=== PATIENT | female | born 2000 | race Caucasian/White ===

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

== ENCOUNTER → 2020-01-16 12:19 | Outpatient (CLI) | payer OTHER, SELFPAY ==
[2020-01-16 13:05] LABS: Basophils # 0.1 K/mm3 (0-0.2); Basophils % 0.8 % (0.1-2.0); Eosinophils # 0.1 K/mm3 (0.0-0.4); Lymphocytes # 2.7 K/mm3 (0.7-4.5); Neutrophils # 4.3 K/mm3 (1.8-7.8)
[2020-01-16 13:18] LABS: Eosinophils % 1.4 % (0.1-12.0); Hematocrit 39.1 % (37.0-47.0); Hemoglobin 12.8 g/dL (12.2-16.2); Mean Corpuscular HGB Conc 32.7 g/dL (31.8-35.4); Mean Corpuscular Hemoglobin 24.5 pg (27.0-31.2); Mean Corpuscular Volume 74.9 fl (81-99); Mean Platelet Volume 7.5 fl (7.4-10.4); Monocytes # 0.4 K/mm3 (0.1-1.0); Monocytes % 4.6 % (1.7-9.3); Neutrophils % 57.1 % (37.0-80.0); Platelet Count 513 K/mm3 (142-424); Red Blood Count 5.22 M/mm3 (4.20-5.40); Red Cell Distribution Width 16.1 % (11.5-17.5); White Blood Count 7.6 K/mm3 (4.5-13.0)
[2020-01-16 13:35] LABS: Alanine Aminotransferase 20 U/L (12-78); Albumin Level 4.2 g/dl (3.5-5.0); Albumin/Globulin Ratio 1.4 (1.1-1.8); Alkaline Phosphatase 107 U/L (38-126); Anion Gap 15.5 mEq/L (5-15); Aspartate Amino Transferase 28 U/L (14-36); Bilirubin,Total 0.4 mg/dl (0.2-1.3); Blood Urea Nitrogen 13 mg/dl (7-17); Calcium 9.6 mg/dl (8.4-10.2); Carbon Dioxide 24 mmol/L (22.0-30.0); Chloride 102 mmol/L (98-107); Chol/HDL Ratio 6.7 (1-3.5); Cholesterol 220 mg/dl (140-200); Estimated Glomerular Filt Rate 108 ml/min (>60); GFR (African American) 130 ML/MIN (>60); Glucose 96 mg/dl (74-100); HDL Cholesterol 33 mg/dl (40-60); Potassium 4.5 mmoL/L (3.5-5.1); Sodium 137 mmol/L (136-145); Total Protein,Serum 7.2 g/dl (6.3-8.2); Triglycerides 220 mg/dl (30-150); VLDL Cholesterol 44 mg/dL (0-40)
[2020-01-16 13:50] LABS: 25-OH Vitamin D, Total 33.4 ng/mL (30-100)
[2020-01-16 13:51] LABS: T4 (Thyroxine) 8.6 ug/dl (5.53-11.0)
[2020-01-16 14:05] LABS: Thyroid Stimulating Hormone 2.63 uIU/mL (0.465-4.68)
== END ==
PROVIDERS: Visit Provider Nurse Practitioner Family
DX: Z76.89 Persons encountering health services in other specified circumstances (principal); E66.01 Morbid (severe) obesity due to excess calories; R03.0 Elevated blood-pressure reading, without diagnosis of hypertension; Z68.41 Body mass index [BMI] 40.0-44.9, adult; Z13.220 Encounter for screening for lipoid disorders
CPT/HCPCS: 36415; 80053; 80061; 82306; 84436; 84443; 85025

== ENCOUNTER → 2020-02-03 08:42 | Outpatient (CLI) | payer OTHER, SELFPAY ==
[2020-02-03 09:18] LABS: Basophils # 0.1 K/mm3 (0-0.2); Basophils % 0.9 % (0.1-2.0); Eosinophils # 0.1 K/mm3 (0.0-0.4); Eosinophils % 1.8 % (0.1-12.0); Hematocrit 38.5 % (37.0-47.0); Hemoglobin 12.4 g/dL (12.2-16.2); Lymphocytes # 2.4 K/mm3 (0.7-4.5); Lymphocytes % 40.8 % (10-50); Mean Corpuscular HGB Conc 32.3 g/dL (31.8-35.4); Mean Corpuscular Hemoglobin 24.7 pg (27.0-31.2); Mean Corpuscular Volume 76.3 fl (81-99); Mean Platelet Volume 7.6 fl (7.4-10.4); Monocytes # 0.3 K/mm3 (0.1-1.0); Monocytes % 4.7 % (1.7-9.3); Neutrophils # 3.1 K/mm3 (1.8-7.8); Neutrophils % 51.7 % (37.0-80.0); Platelet Count 454 K/mm3 (142-424); Red Blood Count 5.04 M/mm3 (4.20-5.40); Red Cell Distribution Width 15.5 % (11.5-17.5)
[2020-02-05 08:46] LABS: Peripheral Smear Review Scanned Result
== END ==
PROVIDERS: Visit Provider Physician Assistant
DX: D72.829 Elevated white blood cell count, unspecified (principal)
CPT/HCPCS: 36415; 85025

== ENCOUNTER → 2020-02-10 08:48 | Outpatient (CLI) | payer OTHER, SELFPAY ==
[2020-02-10 09:36] LABS: Iron 42 ug/dL (37-170)
[2020-02-10 09:44] LABS: Total Iron Binding Capacity 372 ug/dL (265-497)
[2020-02-10 10:09] LABS: Ferritin 12.5 ng/ml (6.24-137)
== END ==
PROVIDERS: Visit Provider Physician Assistant
DX: R71.8 Other abnormality of red blood cells (principal)
CPT/HCPCS: 36415; 82728; 83540; 83550

== ENCOUNTER 2020-03-31 19:35 | Emergency (ER) | payer OTHER, SELFPAY ==
[2020-03-31 19:54] VITALS: BP 149/90; PULSE 81; RESP 18; O2SAT 99; BMI 39.9
--- NOTE | 2020-03-31 20:18 | HMH.EDUTC ---
[facility] [place]ression: Otitis media Qualifiers: Otitis media type: unspecified Laterality: left Qualified Code(s): H66.92 - Otitis media, unspecified, left ear Disposition: Home, Self-Care Condition on Discharge: Good Instructions: Middle Ear Infections (Alternative Therapy), Middle Ear Infection, Amoxicillin and Clavulanic Acid Additional Instructions: Take medication as prescribed FOllow up with ENT as scheduled FOllow up with Family Doctor if no improvement or any worsening of symptoms Straight to ER if any life threatening symptoms Prescriptions: Amoxicillin/Potassium Clav [Augmentin 875-125 Tablet] 1 tab PO Q12H 10 Days #20 tab Transmission Status: Received by [id number] Referrals: Jose Roberto Castillo MD [Primary Care Provider] - Time of Disposition: 20:24 Medical Decision Making - Elias Inquiry Pt receiving controlled substance: No Elias was queried for this patient: No Vital Signs: 03/31/20 19:54 03/31/20 20:40 Temperature 98.1 F Temperature Source Oral Pulse Rate 81 Pulse Rate [Radial] 81 Respiratory Rate 18 18 Blood Pressure 149/90 H Blood Pressure [Right Arm] 149/90 H Blood Pressure Mean [Right Arm] 109 Blood Pressure Source Automatic Cuff Blood Pressure Source [Right Arm] Automatic Cuff Blood Pressure Position Sitting Blood Pressure Position [Right Arm] Sitting 02 Sat by Pulse Oximetry 99 Oxygen Delivery Method Room Air Room Air Orders (Tests/Meds): ED MEDICATIONS Discontinued Medications Generic Name Dose Route Start Last Admin Trade Name Freq PRN Reason Stop Dose Admin Amoxicillin/Clavulanate Potassium 1 each 03/31/20 20:24 03/31/20 20:29 Amoxicillin/Pot Clavulan 500mg Tablet PO 03/31/20 20:25 1 each ONCE ONE Administration Protocol [facility] [place] - General Stated complaint: Possible L ear infection Time Seen by Provider: 03/31/20 20:18 Mode of Arrival: Ambulatory Source of Information: Patient Limitations: No Limitations Description of Symptoms (Recalled from Triage Doc. by RN): POSSIBLE EAR INFECTION HEENT Symptoms (Recalled from RN notes): Yes Resp Symptoms (Recalled from RN notes): No Skin Symptoms (Recalled from RN notes): No MS Symptoms (Recalled from RN notes): No Functional Status (Recalled from RN notes): WNL - History of Present Illness Provider Complaint: Patient states that she has a ear drum rupture back in May and ever since she has ear infections in her left ear States that she felt it start coming on several days ago and she has been watching it States that she feels like she is having pressure and pain in left ear again like she had before with infection - Related Data Previous Rx's Medication Instructions Recorded Amoxicillin/Potassium Clav 1 tab PO Q12H 10 Days #20 tab 03/31/20 [Augmentin 875-125 Tablet] Allergies Allergy/AdvReac Type Severity Reaction Status Date / Time No Known Allergies Allergy Verified 02/23/20 12:48 - Worker's Comp Is this a Worker's Comp case?: No [facility] History - Hepatitis A Screen Drug use history?: No High risk sexual behaviors?: No History of sexually transmitted infection?: No Currently employed?: No Childcare worker?: No Do you have indoor plumbing?: Yes Do you have electricity?: Yes Attestation statement:: This patient has been screened for Hepatitis A risk factors. I have reviewed the patient's past medical history: Yes Other Medical History: Reports: Sinus Problems Laterality Cases: Bilateral: Tonsillectomy Other Surgeries: Yes: Other Comment: wisdom teeth - Social History Smoking Status: Never smoker Alcohol Intake: never Substance Use Type: denies use Occupational Status: employed Family Hx:: Diabetes, Coronary Artery Disease, Stroke, Heart Attack ROS Obtained: Yes All systems reviewed & no additional complaints, Yes Systems reviewed as appropriate & no additional complaints - Constitutional Constitutional: Reports system rev
[2020-03-31 20:40] VITALS: BP 149/90; PULSE 81; RESP 18; TEMP 36.7; O2SAT 99
== END 2020-03-31 20:41 | disposition home or self-care (01) ==
PROVIDERS: Emergency Provider Nurse Practitioner; PCP Emergency Medicine
DX: H66.92 Otitis media, unspecified, left ear (principal)
CPT/HCPCS: 99201

== ENCOUNTER → 2020-04-30 11:57 | Outpatient (CLI) | payer OTHER, SELFPAY ==
[2020-04-30 13:44] LABS: Basophils # 0.1 K/mm3 (0-0.2); Eosinophils # 0.1 K/mm3 (0.0-0.4); Eosinophils % 1.4 % (0.1-12.0); Hematocrit 42.4 % (37.0-47.0); Hemoglobin 13.6 g/dL (12.2-16.2); Lymphocytes % 39.9 % (10-50); Mean Corpuscular Hemoglobin 25.6 pg (27.0-31.2); Mean Corpuscular Volume 79.9 fl (81-99); Monocytes # 0.4 K/mm3 (0.1-1.0); Monocytes % 5.2 % (1.7-9.3); Neutrophils # 3.9 K/mm3 (1.8-7.8); Neutrophils % 52.6 % (37.0-80.0); Platelet Count 497 K/mm3 (142-424); Red Cell Distribution Width 15.3 % (11.5-17.5); White Blood Count 7.4 K/mm3 (4.5-13.0)
[2020-04-30 15:04] LABS: Chloride 104 mmol/L (98-107); Potassium 4.7 mmoL/L (3.5-5.1); Sodium 137 mmol/L (136-145)
[2020-04-30 15:06] LABS: Blood Urea Nitrogen 10 mg/dl (7-17); Estimated Glomerular Filt Rate 108 ml/min (>60); GFR (African American) 130 ML/MIN (>60)
[2020-04-30 15:07] LABS: Alanine Aminotransferase 15 U/L (12-78); Albumin Level 4.1 g/dl (3.5-5.0); Albumin/Globulin Ratio 1.4 (1.1-1.8); Alkaline Phosphatase 88 U/L (38-126); Anion Gap 13.7 mEq/L (5-15); Aspartate Amino Transferase 24 U/L (14-36); Bilirubin,Total 0.3 mg/dl (0.2-1.3); Calcium 9.2 mg/dl (8.4-10.2); Carbon Dioxide 24 mmol/L (22.0-30.0); Globulin 2.9 g/dL (1.3-3.2); Glucose 90 mg/dl (74-100); Iron 50 ug/dL (37-170)
[2020-04-30 15:20] LABS: Total Iron Binding Capacity 354 ug/dL (265-497)
[2020-04-30 15:41] LABS: Ferritin 11.1 ng/ml (6.24-137)
== END ==
PROVIDERS: Visit Provider Internal Medicine Medical Oncology
DX: R71.8 Other abnormality of red blood cells (principal)
CPT/HCPCS: 36415; 80053; 82728; 83540; 83550; 85025

== ENCOUNTER → 2020-09-19 16:17 | Outpatient (CLI) | payer OTHER, SELFPAY ==
[2020-09-19 17:23] LABS: Basophils # 0.1 K/mm3 (0-0.2); Basophils % 0.6 % (0.1-2.0); Eosinophils # 0.1 K/mm3 (0.0-0.4); Eosinophils % 0.8 % (0.1-12.0); Hematocrit 38.7 % (37.0-47.0); Hemoglobin 12.8 g/dL (12.2-16.2); Lymphocytes # 2.6 K/mm3 (0.7-4.5); Lymphocytes % 25.1 % (10-50); Mean Corpuscular Hemoglobin 26.9 pg (27.0-31.2); Mean Corpuscular Volume 81.6 fl (81-99); Mean Platelet Volume 7.9 fl (7.4-10.4); Monocytes # 0.6 K/mm3 (0.1-1.0); Monocytes % 5.4 % (1.7-9.3); Neutrophils # 7.1 K/mm3 (1.8-7.8); Neutrophils % 68.1 % (37.0-80.0); Platelet Count 438 K/mm3 (142-424); Red Blood Count 4.75 M/mm3 (4.20-5.40); Red Cell Distribution Width 14.1 % (11.5-17.5); White Blood Count 10.5 K/mm3 (4.5-13.0)
[2020-09-21 10:50] LABS: HSV 2 IgG, Type Spec <0.91 index (0.00-0.90); Rubella Antibodies, IgG 2.17 index (Immune >0.99)
[2020-09-21 10:56] LABS: HIV Screen 4th Generation wRfx Non Reactive (Non Reactive)
[2020-09-21 11:10] LABS: Hepatitis B Surface Antigen Negative (Negative); Hepatitis C Antibody <0.1 s/co ratio (0.0-0.9)
[2020-09-21 14:08] LABS: Rapid Plasma Reagin Ab Titer Non Reactive (NonRea<1:1)
[2020-09-24 20:28] LABS: Neisseria gonorrhoeae, NAA Negative (Negative)
== END ==
PROVIDERS: Visit Provider Nurse Practitioner Obstetrics & Gynecology
DX: Z34.90 Encounter for supervision of normal pregnancy, unspecified, unspecified trimester (principal)
CPT/HCPCS: 36415; 85025; 86592; 86695; 86703; 86762; 86790; 86850; 87340; 87380; 87491; 87591; G0432

== ENCOUNTER → 2020-09-26 14:10 | Outpatient (CLI) | payer OTHER, SELFPAY ==
--- NOTE | 2020-09-26 14:11 | US_ITS ---
PROCEDURE: US OB <= 14 WEEKS FETUS CLINICAL INDICATION: for dates COMPARISON: No exams were available for comparison FINDINGS: An intrauterine gestational sac is present with a pole with a crown-rump length of 1.94cm correlating to gestational age of 8weeks 4days. heart tones are present with an FHR of 160bpm. Yolk sac is noted. IMPRESSION: Single live intrauterine gestation with gestational age of 8 weeks and 4 days. Estimated due date by Ultrasound is 05/04/2021 Dictated by: Frieda Jaffe 09/27/2020 09:36 Frieda Jaffe in [place] 09/27/2020 09:36
== END ==
PROVIDERS: PCP Emergency Medicine; Visit Provider Nurse Practitioner Obstetrics & Gynecology
DX: Z34.90 Encounter for supervision of normal pregnancy, unspecified, unspecified trimester (principal)
CPT/HCPCS: 76801

== ENCOUNTER 2020-12-08 14:01 | Emergency (ER) | payer OTHER, SELFPAY ==
[2020-12-08 14:12] VITALS: BP 138/77; PULSE 104; RESP 18; TEMP 36.6; O2SAT 100; BMI 43.2
--- NOTE | 2020-12-08 14:38 | HMH.EDUTC ---
[facility] [place] Clinical Impression: Acute maxillary sinusitis Qualifiers: Recurrence: non-recurrent Qualified Code(s): J01.00 - Acute maxillary sinusitis, unspecified Disposition: Home, Self-Care Condition on Discharge: Good Instructions: DI for Sinusitis Additional Instructions: Start antibiotic patient to take as ordered for a full length of time even if you feel better. Sinus infections do not get better overnight. It may take 2-3 days to notice much improvement so be sure to use conservative measures as discussed for symptoms. Increase fluids Humidifier/vaporizer as needed Tylenol as needed for fever or pain. If symptoms do not improve or get worse return or be seen in the ER Follow-up with primary care this week Prescriptions: cephALEXin [Cephalexin 500mg Tab] 500 mg PO BID 7 Days #14 tab Transmission Status: Pending to [id number] Referrals: Jose Roberto Castillo MD [Primary Care Provider] - Time of Disposition: 14:41 Medical Decision Making - Elias Inquiry Pt receiving controlled substance: No Vital Signs: 12/08/20 14:12 Temperature 97.9 F Temperature Source Tympanic Pulse Rate [Apical] 104 H Respiratory Rate 18 Blood Pressure [Right Arm] 138/77 Blood Pressure Mean [Right Arm] 97 Blood Pressure Source [Right Arm] Automatic Cuff Blood Pressure Position [Right Arm] Sitting 02 Sat by Pulse Oximetry 100 Oxygen Delivery Method Room Air [facility] [place] - General Chief complaint: Urgent [facility] Stated complaint: 19 wks, both ear pain, sinuses Time Seen by Provider: 12/08/20 14:38 Mode of Arrival: Ambulatory Source of Information: Patient Limitations: No Limitations Description of Symptoms (Recalled from Triage Doc. by RN): ear and sinus issues HEENT Symptoms (Recalled from RN notes): No Resp Symptoms (Recalled from RN notes): No Skin Symptoms (Recalled from RN notes): No MS Symptoms (Recalled from RN notes): No Functional Status (Recalled from RN notes): na - History of Present Illness Provider Complaint: 20 yr old female presents for missy ear pressure,sinus pressure,sinus pain, and dark yellow drainage. - Related Data Home Medications Medication Instructions Recorded Confirmed prenat.vits,briana,[id number] 1 tab PO DAILY 08/31/20 11/14/20 polyethylene glycol 3350 17 17 g PO g 11/14/20 11/14/20 gram/dose oral powder Previous Rx's Medication Instructions Recorded polyethylene glycol 3350 17 gram 17 g PO DAILY 100 Days #100 each 10/17/20 oral powder packet cephALEXin [Cephalexin 500mg Tab] 500 mg PO BID 7 Days #14 tab 12/08/20 Allergies Allergy/AdvReac Type Severity Reaction Status Date / Time No Known Allergies Allergy Verified 11/14/20 13:49 - Worker's Comp Is this a Worker's Comp case?: No [facility] History - Hepatitis A Screen Drug use history?: No High risk sexual behaviors?: No History of sexually transmitted infection?: No Currently employed?: No Childcare worker?: No Do you have indoor plumbing?: Yes Do you have electricity?: Yes Attestation statement:: This patient has been screened for Hepatitis A risk factors. I have reviewed the patient's past medical history: Yes Medical History: Reports:: Hypertension Other Medical History: Reports: Sinus Problems Laterality Cases: Bilateral: Tonsillectomy Other Surgeries: Yes: No Previous Surgery, Other Amputation: No Fractures: No Comment: wisdom teeth - Social History Smoking Status: Never smoker Alcohol Intake: never Substance Use Type: denies use Occupational Status: employed Family Hx:: Diabetes, Coronary Artery Disease, Stroke, Heart Attack ROS Obtained: Yes Systems reviewed as appropriate & no additional complaints - Constitutional Constitutional: Reports system reviewed and no additional complaints, except as docu, Denies lethargy - Eyes Eyes: Reports system reviewed and no additional complaints, except as docu, Denies dry eyes - ENT Ears, Nose, Mouth, and Throat: Reports
[2020-12-08 14:59] VITALS: BP 138/77; PULSE 104; RESP 18; TEMP 36.6; O2SAT 100
== END 2020-12-08 14:40 | disposition home or self-care (01) ==
PROVIDERS: Emergency Provider Nurse Practitioner Family; PCP Emergency Medicine
DX: J01.00 Acute maxillary sinusitis, unspecified (principal); Z3A.19 19 weeks gestation of pregnancy
CPT/HCPCS: 99202; G0463

== ENCOUNTER → 2020-12-19 12:56 | Outpatient (CLI) | payer OTHER, SELFPAY ==
--- NOTE | 2020-12-19 12:56 | US_ITS ---
PROCEDURE: US OB >= 14 WEEKS FETUS CLINICAL INDICATION: 20 weeks gestation COMPARISON: US US OB <= 14 WEEKS FETUS from 09/26/2020 FINDINGS: There is less than optimal imaging due to maternal obesity. Single live fetus is present in breech presentation. heart body motion noted. Cervix is closed and measures 4 cm. The placenta is posterior and grade 1. All parameters correlate. Complete survey performed and was unremarkable on the submitted images as in PACS. No discrete anomalies identified on survey imaging by technologist. Active fetus. Three-vessel cord with satisfactory umbilical cord insertion. 4- chamber heart noted. Survey of brain & ventricles Unremarkable. Face and neck survey unremarkable. Diaphragm and chest views unremarkable. Abdomen: Both kidneys noted and unremarkable. Stomach noted and satisfactory. Spine: Survey of the spine satisfactory with no anomalies identified nor imaged. Both arms and legs noted. Amniotic Fluid: Adequate. Maternal adnexa: No significant findings. Measurements: Average ultrasound age 20weeks 4days. Gestational Age 20weeks 4days Estimated due date by ultrasound age 1205/04/2021. Estimated weight 355g BPD = 20weeks 5days OFD = 20weeks 4days HC = 19weeks 6days AC = 20weeks 5days FL = 20weeks 4days Growth Percentile= 39Percent% Heart Rate = Cerebellum = 20weeks 3days Humerus = 21weeks 3days HC/AC is 1.11 CI is 0.8 FL/BPD is 0.69 FL/AC is 0.22 IMPRESSION: Live IUP in breech presentation with an average ultrasound age of 20 weeks 4 days and no obvious anomalies. Please see above for detail. Dictated by: Humberto Victoria MD 12/20/2020 09:01 Humberto Victoria MD in OV 12/20/2020 09:01
== END ==
PROVIDERS: PCP Emergency Medicine; Visit Provider Nurse Practitioner Obstetrics & Gynecology
DX: Z34.91 Encounter for supervision of normal pregnancy, unspecified, first trimester (principal); Z3A.20 20 weeks gestation of pregnancy
CPT/HCPCS: 76805

== ENCOUNTER → 2021-01-28 10:50 | Outpatient (CLI) | payer OTHER, SELFPAY ==
[2021-01-28 11:38] LABS: Glucose,Fasting 103 mg/dl (74-100)
[2021-01-28 13:59] LABS: Glucose 1 Hour 137 mg/dL (74-100)
== END ==
PROVIDERS: Visit Provider Nurse Practitioner Obstetrics & Gynecology
DX: Z34.90 Encounter for supervision of normal pregnancy, unspecified, unspecified trimester (principal)
CPT/HCPCS: 36415; 82951

== ENCOUNTER → 2021-02-01 09:58 | Outpatient (CLI) | payer OTHER, SELFPAY ==
[2021-02-01 11:01] LABS: Glucose,Fasting 99 mg/dl (74-100)
[2021-02-01 13:03] LABS: Glucose 2 Hour 104 mg/dL (74-100)
[2021-02-01 14:30] LABS: Glucose 3 Hour 83 mg/dL (74-100)
== END ==
PROVIDERS: Visit Provider Nurse Practitioner Obstetrics & Gynecology
DX: Z34.90 Encounter for supervision of normal pregnancy, unspecified, unspecified trimester (principal)
CPT/HCPCS: 36415; 82951

== ENCOUNTER → 2021-04-04 14:46 | Outpatient (CLI) | payer OTHER, SELFPAY ==
--- NOTE | 2021-04-04 14:47 | US_ITS ---
PROCEDURE: US OB BIOPHYSICAL PROFILE CLINICAL INDICATION: LGA TECHNIQUE: FINDINGS: The following parameters are obtained: There is a single live fetus in cephalic presentation. The cervix is closed measuring 3 cm. The placenta is fundal and grade 1. Average ultrasound age is Average 36weeks Estimated due date by ultrasound is 05/02/2021. Estimated weight is 2,691g. This is 34 percentile BPD: 38weeks OFD: 38weeks HC: 36 weeks 1 day AC: 34 weeks 6 days FL: 36 weeks 3 days heart rate: 149bpm bpm. HC/AC: 1.04 Cephalic index: 0.79 FL/BPD: 0.79 FL/AC: 0.23 Amniotic fluid index: 14.59cm Qualitative AFV: 2 breathing movements: 2 Gross body movements: 2 Tone: 2 Biophysical profile score: 8 IMPRESSION: Live IUP in cephalic presentation with an average ultrasound age of 36 weeks and an estimated weight of 2691 g which is 34 percentile. Please see above for detailed description. Normal MARK of 15 cm Biophysical profile 8 of 8 Dictated by: Humberto Victoria MD 04/04/2021 17:25 Humberto Victoria MD in OV 04/04/2021 17:25
== END ==
PROVIDERS: PCP Emergency Medicine; Visit Provider Nurse Practitioner Obstetrics & Gynecology
DX: O36.60X0 Maternal care for excessive fetal growth, unspecified trimester, not applicable or unspecified (principal)
CPT/HCPCS: 76816; 76819

== ENCOUNTER → 2021-04-08 14:35 | Outpatient (CLI) | payer OTHER, SELFPAY | PROVIDERS: Visit Provider Nurse Practitioner Obstetrics & Gynecology | DX: Z34.90 Encounter for supervision of normal pregnancy, unspecified, unspecified trimester (principal); Z3A.36 36 weeks gestation of pregnancy | CPT/HCPCS: 86403 ==

== ENCOUNTER → 2021-04-16 11:37 | Outpatient (CLI) | payer OTHER, SELFPAY ==
[2021-04-16 12:05] LABS: Basophils # 0.1 K/mm3 (0-0.2); Basophils % 0.5 % (0.1-2.0); Eosinophils # 0.1 K/mm3 (0.0-0.4); Eosinophils % 1.3 % (0.1-12.0); Hematocrit 40.6 % (37.0-47.0); Hemoglobin 13.6 g/dL (12.2-16.2); Lymphocytes # 2.1 K/mm3 (0.7-4.5); Lymphocytes % 22.9 % (10-50); Mean Corpuscular HGB Conc 33.4 g/dL (31.8-35.4); Mean Corpuscular Hemoglobin 28.6 pg (27.0-31.2); Mean Corpuscular Volume 85.5 fl (81-99); Mean Platelet Volume 9.2 fl (7.4-10.4); Monocytes # 0.5 K/mm3 (0.1-1.0); Monocytes % 5.1 % (1.7-9.3); Neutrophils # 6.4 K/mm3 (1.8-7.8); Neutrophils % 70.1 % (37.0-80.0); Platelet Count 377 K/mm3 (142-424); Red Blood Count 4.74 M/mm3 (4.20-5.40); Red Cell Distribution Width 14.1 % (11.5-17.5); White Blood Count 9.1 K/mm3 (4.5-13.0)
[2021-04-16 12:26] LABS: D-Dimer 0.99 ug/mL (0.0-0.5)
[2021-04-16 13:09] LABS: Alanine Aminotransferase 8 U/L (12-78); Anion Gap 9.2 mEq/L (5-15); Aspartate Amino Transferase 21 U/L (14-36); Blood Urea Nitrogen 8 mg/dl (7-17); Calcium 8.8 mg/dl (8.4-10.2); Carbon Dioxide 22 mmol/L (22.0-30.0); Chloride 106 mmol/L (98-107); Estimated Glomerular Filt Rate 157 ml/min (>60); GFR (African American) 190 ML/MIN (>60); Glucose 94 mg/dl (74-100); Potassium 4.2 mmoL/L (3.5-5.1); Sodium 133 mmol/L (136-145); Uric Acid 4.2 mg/dl (2.5-6.2)
[2021-04-16 13:21] LABS: Activated Partial Thrombo Time 29.1 seconds (22.8-30.6); INR 0.97 (0.9-1.1)
[2021-04-16 14:42] LABS: Fibrinogen 636 mg/dL (229.9-363.5)
== END ==
PROVIDERS: Visit Provider Nurse Practitioner Obstetrics & Gynecology
DX: Z34.90 Encounter for supervision of normal pregnancy, unspecified, unspecified trimester (principal)
CPT/HCPCS: 36415; 80048; 84450; 84460; 84550; 85025; 85378; 85384; 85610; 85730

== ENCOUNTER → 2021-04-18 12:55 | Outpatient (CLI) | payer OTHER, SELFPAY ==
[2021-04-18 18:08] LABS: Creatinine,Urine Random 99 mg/dL (Not Estab.)
[2021-04-18 19:09] LABS: Collection Time,Urine 24 hours; Creatinine 24 Hour,Urine 1782 mg/24hr (630-2500); Total Volume,Urine 1800 mL (600-1600)
[2021-04-18 19:12] LABS: Patient Height,Urine 65 inches; Patient Weight,Urine 240 lbs
[2021-04-18 19:53] LABS: Total Protein 24 Hour,Urine 90 mg/24 hr (40-90); Total Protein,Urine Random < 5.0 mg/dL (0.0-12.0)
== END ==
PROVIDERS: Visit Provider Nurse Practitioner Obstetrics & Gynecology
DX: O13.9 Gestational [pregnancy-induced] hypertension without significant proteinuria, unspecified trimester (principal); Z34.90 Encounter for supervision of normal pregnancy, unspecified, unspecified trimester
CPT/HCPCS: 36415; 82575; 84155

== ENCOUNTER → 2021-04-22 10:56 | Outpatient (CLI) | payer OTHER, SELFPAY | PROVIDERS: Visit Provider Nurse Practitioner Obstetrics & Gynecology | DX: Z3A.38 38 weeks gestation of pregnancy (principal) | CPT/HCPCS: C9803; U0003; U0005 ==

== ENCOUNTER 2021-04-24 04:19 | Inpatient (IN) | payer OTHER, SELFPAY ==
[2021-04-24] VITALS (15 sets, daily range): BP systolic 113–148; BP diastolic 47–91; PULSE 81–100; RESP 12–18; TEMP 36.4–37.2; O2SAT 98–100; BMI 47.4
[2021-04-24 05:34] LABS: Microscopic, Urine URINE MICROSCOPIC (MICROSCOPIC)
[2021-04-24 05:34] LABS: Coronavirus 19, PCR Not Detected (NotDetected); Influenza A, PCR Not Detected (NotDetected); Influenza B, PCR Not Detected (NotDetected)
[2021-04-24 05:35] LABS: Basophils # 0.1 K/mm3 (0-0.2); Basophils % 0.5 % (0.1-2.0); Eosinophils # 0.1 K/mm3 (0.0-0.4); Eosinophils % 0.8 % (0.1-12.0); Hematocrit 37.9 % (37.0-47.0); Lymphocytes # 2.6 K/mm3 (0.7-4.5); Lymphocytes % 25.6 % (10-50); Mean Corpuscular HGB Conc 34.3 g/dL (31.8-35.4); Mean Corpuscular Hemoglobin 28.7 pg (27.0-31.2); Mean Corpuscular Volume 83.6 fl (81-99); Monocytes # 0.6 K/mm3 (0.1-1.0); Monocytes % 5.6 % (1.7-9.3); Neutrophils # 6.9 K/mm3 (1.8-7.8); Neutrophils % 67.5 % (37.0-80.0); Platelet Count 374 K/mm3 (142-424); Red Blood Count 4.54 M/mm3 (4.20-5.40); Red Cell Distribution Width 14.2 % (11.5-17.5); White Blood Count 10.2 K/mm3 (4.5-13.0)
[2021-04-24 05:37] LABS: Appearance,Urine CLEAR (Clear); Bilirubin,Urine Negative (Negative); Blood, Urine TRACE-I (Negative); Color,Urine YELLOW (Yellow); Glucose,Urine (UA) Negative (Negative); Ketones,Urine Negative (Negative); Leukocyte Esterase,Urine 1+ (Negative); Nitrate,Urine Negative (Negative); Protein,Urine Negative (Negative); Specific Gravity, Urine 1.025 (1.005-1.030); Urobilinogen,Urine 0.2 EU/dl (0.2)
[2021-04-24 05:50] LABS: Amphetamine/Metha Screen,Urine Negative ng/ml (<1000)
[2021-04-24 05:51] LABS: Barbiturates Screen,Urine Negative ng/ml (<200); Benzodiazepines Screen,Urine Negative ng/ml (<200)
[2021-04-24 05:52] LABS: Cannabinoid Screen,Urine Negative ng/ml (<50)
[2021-04-24 05:53] LABS: Cocaine Screen,Urine Negative ng/ml (<300); Methadone Screen,Urine Negative ng/ml (<300)
[2021-04-24 05:54] LABS: Bacteria,Urine 1+ /lpf; Mucus,Urine 1+ /lpf; Opiate Screen,Urine Negative ng/ml (<300); Phencyclidine Screen,Urine Negative ng/ml (<25); RBC,Urine Occasional #/hpf (0-3)
--- NOTE | 2021-04-24 07:16 | HMH.PHAINT ---
MEDICATION RECONCILIATION COMPLETED ON PATIENT USING EXTERNAL FILL HISTORY FROM PHARMACY AND LIST FROM CHILDHOOD DEVELOPMENT TEACHER OFFICE. -CARMELO SRINIVASAND
--- NOTE | 2021-04-24 09:57 | HMH.LABNOT ---
Labor Note - Subjective: Date: 04/24/21 Time: 09:15 regular contraction - Objective: NST:: Reactive Contractions:: every 2-3 minutes Cervical Dilation:: 2 Effacement:: 50% Station: -2 Membranes: artificially ruptured Comment:: I ruptured her membranes and there was clear fluid. - Fetus: Monitoring?: Yes monitoring type:: Internal and External Comment:: I inserted an IUPC to bean picker the contractions little better. - Assessment: Labor progressing?: Yes Cephalopelvic disproportion?: No Patient Problems: All Active Problems Acute maxillary sinusitis (Acute) (Acute) - Plan: Anesthesia for epidural?: No Continue to labor down?: Yes Plan for ?: No Continue to monitor?: Yes Start pushing?: No
--- NOTE | 2021-04-24 09:59 | HMH.OBAPHP ---
OB - H&P: HPI Antepartum - History of Present Illness Chief complaint: Term , labile hypertension History of present illness: She is a 20-year-old 1 para 0 at 39 weeks gestational age. She has had some episodes of increased blood pressure. We have done blood pressure work-ups that were negative. A 24-hour urine was negative. Her blood pressure has resolved somewhat. As result of that we are inducing her labor at term. - History of Present Criteria for establishing EDC:: LMP confirmed by 1st trimester US care: good care Ultrasounds: normal 1st trimester US, normal mid trimester US Obstetrical complications: gestational hypertension Medical complications: none [facility] History I have reviewed the patient's past medical history: Yes Medical History: Reports:: Hypertension *Have you ever received a pneumonia vaccine?: No *Have you received a flu vaccine this season?: Yes Other Medical History: Reports: Sinus Problems Laterality Cases: Bilateral: Tonsillectomy Other Surgeries: Yes: No Previous Surgery, Other. No: Amputation: No Fractures: No - *Social History Smoking Status: Never smoker Alcohol Intake: never Alcohol Intake Frequency:: other Substance Use Type: denies use *Occupational Status:: other *Travel in the last 8 weeks: None Family Hx:: Diabetes, Coronary Artery Disease, Stroke, Heart Attack Para: 0 Review of Systems - Review of Systems Review of systems:: pertinent systems reviewed and negative unless documented below Meds Home Medications Medication Instructions Recorded Confirmed Type prenat.vits,briana,[id number] 1 tab PO DAILY 08/31/20 04/24/21 History polyethylene glycol 3350 17 17 g PO DAILY g 11/14/20 04/24/21 History gram/dose oral powder aspirin 81 mg chewable tablet 81 mg PO DAILY 03/25/21 04/24/21 History magnesium 250 mg tablet 250 mg PO DAILY 03/25/21 04/24/21 History RX: Ferrous Sulfate 325 mg PO DAILY 04/24/21 04/24/21 History Allergies Allergy/AdvReac Type Severity Reaction Status Date / Time No Known Allergies Allergy Verified 04/22/21 10:26 OB - H&P: Exam - Physical Exam Vital signs: Temp Pulse Resp BP Pulse Ox 98.3 F 87 18 144/82 H 100 04/24/21 05:40 04/24/21 05:40 04/24/21 05:40 04/24/21 05:40 04/24/21 05:40 - Constitutional no acute distress, obese - Routine HEENT Exam Head: Present: normocephalic Eye: Present: EOMI, PERRL ENT: Present: mucous membranes moist - Routine Neck Exam Present: supple, full ROM - Routine Respiratory Exam Absent: accessory muscle use (good air entry bilaterally), respiratory distress, wheezes, crackles - Routine Cardiovascular Exam Present: RRR. Absent: murmur - Routine Abdominal Exam Present: soft, normoactive bowel sounds. Absent: tenderness, distended, guarding - Routine Rectal Exam Patient deferred: visual exam, digital exam - Routine Exam Patient deferred: external exam, groin exam, perineal exam - Routine Extremities Exam Present: full ROM. Absent: cyanosis, edema - Routine Skin Exam Present: intact. Absent: cyanosis - Routine Neurological Exam Present: alert, oriented X3 - Routine Psychiatric Exam Present: normal affect OB - Results - Labs Labs: Short CBC 04/24/21 Range/Units 05:10 WBC 10.2 (4.5-13.0) K/mm3 Hgb 13.0 (12.2-16.2) g/dL Hct 37.9 (37.0-47.0) % Plt Count 374 (142-424) K/mm3 Urine 04/24/21 Range/Units 04:45 Urine Color Yellow (Yellow) Urine Appearance Clear (Clear) Urine pH 6.0 (5.0-8.5) Ur Specific [place] 1.025 (1.005-1.030) Urine Protein Negative (Negative) Urine Glucose (UA) Negative (Negative) OB - A/P Antepartum (1) Normal delivery at term Status: Acute (2) Gestational hypertension Status: Acute (3) Obesity affecting Status: Acute - Additional Plan Planning to breastfeed?: Yes Plan: induction Additional Informat
--- NOTE | 2021-04-24 11:33 | HMH.LABNOT ---
Labor Note - Subjective: Date: 04/24/21 Time: 11:33 regular contraction - Objective: NST:: Reactive Contractions:: every 2-3 minutes Cervical Dilation:: 2 Effacement:: 75% Station: -2 Membranes: artificially ruptured - Fetus: Monitoring?: Yes monitoring type:: Internal Comment:: She had an IUPC and I inserted a scalp clip. - Assessment: Labor progressing?: Yes Cephalopelvic disproportion?: No Patient Problems: All Active Problems Acute maxillary sinusitis (Acute) Normal delivery at term (Acute) Gestational hypertension (Acute) Obesity affecting (Acute) (Acute) - Plan: Anesthesia for epidural?: No Continue to labor down?: Yes Plan for ?: No Continue to monitor?: Yes Start pushing?: No Comment:: She has thinned her cervix considerably. I was able to put a scalp clip on. We will continue with expectant management.
--- NOTE | 2021-04-24 13:56 | HMH.LABNOT ---
Labor Note - Subjective: Date: 04/24/21 Time: 13:56 regular contraction - Objective: NST:: Non-reactive Contractions:: every 2-3 minutes Cervical Dilation:: 3 Effacement:: 80% Station: -2 Membranes: artificially ruptured - Fetus: Monitoring?: Yes monitoring type:: Internal - Assessment: Labor progressing?: Yes Cephalopelvic disproportion?: No Patient Problems: All Active Problems Acute maxillary sinusitis (Acute) Normal delivery at term (Acute) Gestational hypertension (Acute) Obesity affecting (Acute) (Acute) - Plan: Anesthesia for epidural?: No Continue to labor down?: Yes Plan for ?: No Continue to monitor?: Yes Start pushing?: No
--- NOTE | 2021-04-24 17:07 | HMH.LABNOT ---
Labor Note - Subjective: Date: 04/24/21 Time: 17:07 regular contraction - Objective: NST:: Reactive Contractions:: every 2-3 minutes Cervical Dilation:: 3 Effacement:: 80% Station: -2 Membranes: artificially ruptured - Fetus: Monitoring?: Yes monitoring type:: Internal - Assessment: Labor progressing?: No Cephalopelvic disproportion?: Yes Patient Problems: All Active Problems Acute maxillary sinusitis (Acute) Normal delivery at term (Acute) Gestational hypertension (Acute) Obesity affecting (Acute) (Acute) - Plan: Anesthesia for epidural?: No Continue to labor down?: No Plan for ?: Yes Continue to monitor?: Yes Start pushing?: No Comment:: She really has not progressed throughout the day. She is still 3 cm and has been 3 cm for the last 4 hours. The head has not come down at all. I suspect she has a large baby and pelvic disproportion. She has been having regular contractions. We'll go ahead with a section. She just received Stadol so we're waiting for her boyfriend to come back to talk to her about the risks of surgery.
--- NOTE | 2021-04-24 17:18 | HMH.ACPN2 ---
Internal Medicine - PN: Subj *Date: 04/24/21 *Time: 17:18 Interval history: We will go ahead with a section. We discussed the risks of surgery that includes bleeding, infection, injuries to the bowel and bladder. We discussed the rare risk of DVT. We discussed this with her mother as well as her boyfriend. All questions were answered and consents were signed. Exam Vital signs and Labs for Last 24 Hours: Temp Pulse Resp BP Pulse Ox 98.1 F 81 18 145/83 H 99 04/24/21 16:45 04/24/21 16:45 04/24/21 16:45 04/24/21 16:45 04/24/21 16:45 Laboratory Results - last 24 hr 04/24/21 04:45: Urine Opiates Screen Negative, Urine Methadone Screen Negative, Ur Barbituates Screen Negative, Ur Phencyclidine Scrn Negative, Ur Amphetamines Screen Negative, U Benzodiazepines Scrn Negative, Urine Cocaine Screen Negative, U Marijuana (THC) Screen Negative 04/24/21 04:45: Urine Color Yellow, Urine Appearance Clear, Urine pH 6.0, Ur Specific [place] 1.025, Urine Protein Negative, Urine Glucose (UA) Negative, Urine Ketones Negative, Urine Blood Trace-i, Urine Nitrate Negative, Urine Bilirubin Negative, Urine Urobilinogen 0.2, Ur Leukocyte Esterase 1+ A, Urine RBC Occasional, Urine WBC 5-10, Urine Bacteria 1+, Urine Mucus 1+ 04/24/21 05:10: WBC 10.2, RBC 4.54, Hgb 13.0, Hct 37.9, MCV 83.6, MCH 28.7, MCHC 34.3, RDW 14.2, Plt Count 374, MPV 9.0, Neut % (Auto) 67.5, Lymph % (Auto) 25.6, [place] % (Auto) 5.6, Eos % (Auto) 0.8, Baso % (Auto) 0.5, Neut # (Auto) 6.9, Lymph # (Auto) 2.6, [place] # (Auto) 0.6, Eos # (Auto) 0.1, Baso # (Auto) 0.1 04/24/21 05:10: Blood Type A Positive, Antibody Screen Negative 04/24/21 05:15: SARS-CoV-2 (PCR) Not detected, Influenza A Untype (PCR) Not detected, Influenza Type B (PCR) Not detected I & O for Last 24 hours: Intake & Output 04/22/21 04/23/21 04/24/21 04/25/21 11:59 11:59 11:59 11:59 Weight 285 lb - Constitutional no acute distress - *Routine HEENT Exam Head: Present: normocephalic Eye: Present: EOMI, PERRL ENT: Present: mucous membranes moist Assessment and Plan (1) Normal delivery at term Status: Acute Category: Medical Code(s): O80 - Encounter for full-term uncomplicated delivery (2) Gestational hypertension Status: Acute Category: Medical Code(s): O13.9 - Gestational [-induced] hypertension without significant proteinuria, unspecified trimester (3) Obesity affecting Status: Acute Category: Medical Code(s): O99.210 - Obesity complicating , unspecified trimester (4) pelvic disproportion delivered Status: Acute Category: Medical Code(s): O33.9 - Maternal care for disproportion, unspecified - Assessment and plan all Dx Assessment and Plan for all problems:: We will go ahead with a section
--- NOTE | 2021-04-24 19:08 | HMH.OPNOTE ---
Date of procedure: 04/24/21 Pre-op Diagnosis:: Term , gestational hypertension, pelvic disproportion Post-op Diagnosis:: Term , gestational hypertension, pelvic disproportion, uterine atony Procedure performed:: Primary lower segment transverse section and B-Barrera suture Surgeon:: Brodie Ellis MD Process Description Writer(s):: Dr. Myers FISH PROTECTOR:: Truman Rosie Anesthesia: spinal Estimated blood loss (mL): 800 Clinical Note:: She is a 20-year-old 1 now para 0 at 39 weeks gestational age. She has had gestational hypertension and as result of that we brought her in for induction of labor at term. She was started on IV oxytocin and had her membranes ruptured. She progressed to just 3 cm. She was 3 cm for about 4 to 5 hours. As result of that we diagnosed her with pelvic disproportion and she was taken for a primary lower segment transverse section. The risks and benefits of surgery were discussed with the patient, her mother who was on the phone and boyfriend. Operative findings:: She delivered a liveborn male child at 6:25 PM in the evening of April 24, 2021. The baby had Apgars of 8 at 1 minute and 9 at 5 minutes. There was a loose nuchal cord. Ovaries and tubes appeared normal. She did have uterine atony after the surgery and the uterus was quite boggy so we elected to place a B-Barrera suture. Operative note:: She was taken to the operating room where spinal anesthesia was found be adequate. She was prepped and draped in normal sterile fashion in the supine position with a leftward tilt. A Tony catheter was in the bladder. A Pfannenstiel skin incision was made with knife then carried through to the underlying layer of fascia with cautery. The fascia was opened in the midline with cautery and extended laterally using Wing scissors. Sky clamps were applied to the superior aspect of the fascial incision which was tented up and the underlying rectus muscles dissected off using cautery. The [place]a clamps were then applied to the inferior aspect of the fascial incision which in a similar fashion was tented up and the underlying rectus muscles dissected off using cautery. The rectus muscles were then in the midline, the peritoneum identified, and entered sharply with Metzenbaum scissors. This incision was then extended superiorly and inferiorly with cautery. We had good visualization of the bladder inferiorly. We then inserted an Neal self retractor. The bladder peritoneum was then opened in the midline and extended laterally using Metzenbaum scissors. A bladder flap was created digitally. Transverse incision was made through the uterine muscle to the amnion. This incision was then extended laterally using fingers traction. The amnion was entered sharply with knife. There was clear amniotic fluid. The 's head was then delivered atraumatically. A loose nuchal cord was then reduced. This was followed by the anterior shoulder and the rest of the 's body atraumatically. The oropharynx and nasopharynx were bulb suctioned. The baby was vigorous so we allowed the cord to continue to pulsate for approximately 1 minute. The cord was then doubly clamped and cut. The was then handed off to Dr. France who assigned Apgars of 8 at 1 minute and 8 at 5 minutes. We then obtained cord blood. Using gentle traction on the cord and countertraction on the fundus I was able to easily deliver the placenta intact. It had a normal three-vessel cord. The uterus was then cleared of clots and debris . The uterine incision was then closed using running 0 Vicryl suture in a locked fashion. A second layer of the same suture was used to imbricate the first layer. The bladder peritoneum was then closed using running 2-0 Vicryl suture in a locked fashion. The gutters and cul-de-sac were then cleared of clots and debris . Once again hemostasis was assured. The uterus was found to be boggy and we
--- NOTE | 2021-04-24 19:14 | P.PN_ITS ---
[facility] Anesthesia Checklist - Structural Data Admitted From: Inpatient Planned Operative Procedure/s: c/section Consent for Planned Operative Procedure(s) Verified: Yes - Airway Assessment C-Spine Mobility Assessed: Yes TMJ Mobility Assessed: Yes Dentition: Good Dentition - Neurological Assessment Level of Consciousness: Awake, Alert, Appropriate - Anesthesia Plan Anesthesia Risk discussed: Yes Anesthesia Plan: Verified ASA Class: III Anesthesia Type: Spinal - Preoperative Comments Pre-Operative Comments: tap block exp to pt incl risks, pt agrees to proceed [facility] History I have reviewed the patient's past medical history: Yes Medical History: Reports:: Hypertension *Have you ever received a pneumonia vaccine?: No *Have you received a flu vaccine this season?: Yes Other Medical History: Reports: Sinus Problems Anesthesia experience/problems:: none Laterality Cases: Bilateral: Tonsillectomy Other Surgeries: Yes: No Previous Surgery, Other. No: Amputation: No Fractures: No - *Social History Smoking Status: Never smoker Alcohol Intake: never Alcohol Intake Frequency:: other Substance Use Type: denies use *Occupational Status:: other *Travel in the last 8 weeks: None Family Hx:: Diabetes, Coronary Artery Disease, Stroke, Heart Attack Para: 0
--- NOTE | 2021-04-24 19:15 | P.PN_ITS ---
[facility] Anesthesia Record Part I Intake, IV Amount: 1,500 Estimated blood loss (mL): 800 Urine output (mL): 250 Blood Pressure: 135/78 SaO2: 100 Pulse Rate: 91 Respiratory Rate: 12 Temperature: 98.9 F Patient is:: Awake, Stable Stable to PACU at:: 19:10
--- NOTE | 2021-04-24 20:24 | SUR.PHASEI ---
1937 Dr. Ellis notified of QBL greater than 1000mL. Dr. Ellis ordered 0.25 methergine IM and to initiated QBL protocol. QBL protocol initiated.
[2021-04-24 21:00] LABS: Microscopic,Cath URINE MICROSCOPIC (MICROSCOPIC)
[2021-04-24 21:02] LABS: Appearance,Urine/Cath CLEAR (Clear); Bilirubin,Cath Negative (Negative); Blood, Urine/Cath Negative (Negative); Color,Urine/Cath YELLOW (Yellow); Glucose,Urine/Cath (UA) Negative (Negative); Ketones,Urine/Cath TRACE (Negative); Leukocyte Esterase,Cath Negative (Negative); Nitrate,Cath Negative (Negative); Protein,Urine/Cath Negative (Negative); Specific Gravity, Urine/Cath 1.015 (1.005-1.030); Urobilinogen,Cath 0.2 EU/dl (0.2)
[2021-04-24 22:57] LABS: Squamous Epithelial Ur./Cath Occasional #/hpf (0-5)
[2021-04-25 00:26] VITALS: BP 125/65; PULSE 100; RESP 18; TEMP 36.5
[2021-04-25 03:59] VITALS: BP 125/68; PULSE 112; RESP 18; TEMP 36.8; O2SAT 97
[2021-04-25 06:54] LABS: Hematocrit 30.5 % (37.0-47.0); Hemoglobin 10.1 g/dL (12.2-16.2)
[2021-04-25 08:00] VITALS: BP 133/72; PULSE 108; RESP 18; TEMP 36.7; O2SAT 100
--- NOTE | 2021-04-25 08:11 | P.PN_ITS ---
Internal Medicine - PN: Subj *Date: 04/25/21 *Time: 08:11 Interval history: She is doing very well this morning. She is 1 day post for pelvic disproportion. She is feeling well. Her lochia is normal. She is breast-feeding. Her pain is well controlled with the T AP block. Exam Vital signs and Labs for Last 24 Hours: Temp Pulse Resp BP Pulse Ox 98.3 F 112 H 18 125/68 97 04/25/21 03:59 04/25/21 03:59 04/25/21 03:59 04/25/21 03:59 04/25/21 03:59 Laboratory Results - last 24 hr 04/24/21 05:10: Blood Type A Positive, Antibody Screen Negative, Crossmatch (AHG) See Detail 04/24/21 18:07: Urine Color Yellow, Urine Appearance Clear, Urine pH 7.0, Ur Specific [place] 1.015, Urine Protein Negative, Urine Glucose (UA) Negative, Urine Ketones Trace, Urine Blood Negative, Urine Nitrate Negative, Urine Bilirubin Negative, Urine Urobilinogen 0.2, Ur Leukocyte Esterase Negative, Urine RBC None, Urine WBC 3-5, Ur Squamous Epith Cells Occasional, Urine Bacteria None 04/25/21 06:33: Hgb 10.1 L, Hct 30.5 L I & O for Last 24 hours: Intake & Output 04/22/21 04/23/21 04/24/21 04/25/21 11:59 11:59 11:59 11:59 Intake Total 1500 / 1500 Output Total 200 / 200 Balance 1300 / 1300 Weight 285 lb Microbiology Reports for the Last 24 Hours: Microbiology 04/24/21 04:45 Urine,Clean Catch Urine Culture - Preliminary NO GROWTH AFTER 24 HOURS - Constitutional no acute distress - *Routine HEENT Exam Head: Present: normocephalic Eye: Present: EOMI, PERRL ENT: Present: mucous membranes moist Assessment and Plan (1) Normal delivery at term Status: Acute Category: Medical Code(s): O80 - Encounter for full-term uncomplicated delivery (2) Gestational hypertension Status: Acute Category: Medical Code(s): O13.9 - Gestational [- induced] hypertension without significant proteinuria, unspecified trimester (3) Obesity affecting Status: Acute Category: Medical Code(s): O99.210 - Obesity complicating , unspecified trimester (4) pelvic disproportion delivered Status: Acute Category: Medical Code(s): O33.9 - Maternal care for disproportion, unspecified - Assessment and plan all Dx Assessment and Plan for all problems:: She continues to do well. We will plan to send her home tomorrow.
[2021-04-25 09:00] VITALS: BP 137/54; PULSE 93; TEMP 36.4
--- NOTE | 2021-04-25 09:00 | P.PN_ITS ---
[facility] Anesthesia Record Part II Discharge Time: 20:00 Destination: Obstetric PACU nurse assessment reviewed?: Yes Patient Condition:: Good Anesthesia Complications:: None Swallowing reflex intact?: Yes Cyanosis?: No Blood Pressure: 137/54 Pulse Rate: 93 Temperature: 97.6 F Mental Status: Alert & Oriented Pain level:: 0 Nausea and/or vomitting:: None Intake, IV Amount: 0
[2021-04-25 20:45] VITALS: BP 126/82; PULSE 100; RESP 17; TEMP 36.6; O2SAT 98
[2021-04-26 03:40] VITALS: BP 125/68; PULSE 100; RESP 18; TEMP 36.7; O2SAT 97
--- NOTE | 2021-04-26 14:19 | HMH.OBDCSM ---
General - General Admission date:: 04/24/21 Discharge date: 04/26/21 HPI - History of Present Illness History of present illness: Induction of labor for GHTN Delivery by c section for failure to progress course uneventful she is discharged home on POD #2 in stable condition she is tolerating a regular diet, ambulating and voiding without difficulty she is asymptomatic with anemia Hospital Course Rhogam Administration: Not Indicated Objective Vital signs: Temp Pulse Resp BP Pulse Ox 98.0 F 100 H 18 125/68 97 04/26/21 03:40 04/26/21 03:40 04/26/21 03:40 04/26/21 03:40 04/26/21 03:40 Narrative: CONSTITUTIONAL: no acute distress HEENT: mucous membranes moist PULMONARY: breathing unlabored without audible wheezes CV: no tachycardia or visible JVD; normal LE peripheral pulses ABD: soft, ND; appropriately tender but no rebound/guarding : fundus firm below umbilicus SKIN: incision well approximated with no drainage, erythema or induration EXT: 1+ edema LEs NEURO: alert/oriented, no altered mental status PSYCH: appropriate mood and demeanor DS: Diagnosis - Discharge Diagnosis (1) Normal delivery at term Status: Acute (2) Gestational hypertension Status: Acute (3) Obesity affecting Status: Acute (4) pelvic disproportion delivered Status: Acute Discharge Plan - Patient Discharge Instructions ACTIVITY: Continue current activity DIET: regular diet Additional Instructions: nothing in the vagina for 6 weeks no strenuous activity or heavy lifting FOLLOW-UP WITH DR. ELLIS ON 05/08/21 AT 1:30 Patient Instructions: Depression, Hemorrhage, DI for , DI for Pre-eclampsia, Surgical Site Infection, [facility] Post Discharge Instructions, Preventing the Spread of Coronavirus Discharge Instructions - Follow up Plan Follow up with: Brodie Ellis MD [Staff Physician] - Disposition: Home, Self-Care Condition at discharge:: Stable Home Medications: Home Medications Medication Instructions Recorded Confirmed Type prenat.vits,briana,[id number] 1 tab PO DAILY 08/31/20 04/24/21 History polyethylene glycol 3350 17 17 g PO DAILY g 11/14/20 04/24/21 History gram/dose oral powder aspirin 81 mg chewable tablet 81 mg PO DAILY 03/25/21 04/24/21 History magnesium 250 mg tablet 250 mg PO DAILY 03/25/21 04/24/21 History Ferrous Sulfate 325 mg PO DAILY 04/24/21 04/24/21 History Ibuprofen [Motrin 400mg 800 mg PO Q6HP PRN #30 tab 04/26/21 Rx tablet] Oxycodone HCl [OxyIR 5mg tablet] 5 mg PO Q6HP PRN #24 tablet 04/26/21 Rx Prescriptions/Medication Reconciliation: New Oxycodone HCl [OxyIR 5mg tablet] 5 mg PO Q6HP PRN #24 tablet PRN Reason: Moderate To Severe Pain Acetaminophen [Acetaminophen 325mg tab] 650 mg PO Q6H tablet Ibuprofen [Motrin 400mg tablet] 800 mg PO Q6HP PRN #30 tab PRN Reason: Mild To Moderate Pain Continued aspirin 81 mg chewable tablet 81 mg PO DAILY prenat.vits,briana,[id number] 1 tab PO DAILY polyethylene glycol 3350 17 gram/dose oral powder 17 g PO DAILY g magnesium 250 mg tablet 250 mg PO DAILY Ferrous Sulfate 325 mg PO DAILY - Problem Reconciliation Problems Reviewed?: Yes
== END 2021-04-26 14:30 | disposition home or self-care (01) | DRG 788 ==
PROVIDERS: Admitting Provider Nurse Practitioner Obstetrics & Gynecology; PCP Emergency Medicine; Visit Provider Nurse Practitioner Obstetrics & Gynecology
PROC: 10D00Z1 Extraction of Products of Conception, Low, Open Approach (ICD-10-PCS; CPT 59514; principal; 2021-04-24 18:00)
DX: O13.3 Gestational [pregnancy-induced] hypertension without significant proteinuria, third trimester (principal); Z3A.39 39 weeks gestation of pregnancy; Z37.0 Single live birth; O33.5XX0 Maternal care for disproportion due to unusually large fetus, not applicable or unspecified; O69.81X0 Labor and delivery complicated by cord around neck, without compression, not applicable or unspecified; O75.89 Other specified complications of labor and delivery
CPT/HCPCS: 59514; 59025; 80305; 81001; 85014; 85018; 85025; 86850; 87086; 94761; C1758; C9803; G0283; U0003; U0005

== ENCOUNTER 2021-04-28 14:27 | Outpatient (CLI) | payer OTHER, SELFPAY ==
--- NOTE | 2021-04-28 14:40 | PC.WOUNDNOTE ---
Pt. Arrived to unit ambulatory with c/o persistent headache since that is unrelieved with medication, neck pain, and nausea. Pt. reports she threw up twice this morning from the headache. Pt. is also wearing sunglasses and requests lights be dimmed. Pt. rated pain at 7.5/10. pt denies pain elsewhere. 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 Pt. to room 272 for triage.
[2021-04-28 14:45] VITALS: BP 131/90; PULSE 107; RESP 20; TEMP 36.8; O2SAT 98
[2021-04-28 14:47] VITALS: BP 131/90; PULSE 107; RESP 20; TEMP 36.8; O2SAT 98; BMI 45.3
[2021-04-28 14:51] VITALS: BMI 45.3
[2021-04-28 15:00] VITALS: BP 135/75
[2021-04-28 15:30] VITALS: BP 140/80
--- NOTE | 2021-04-28 15:30 | PC.NURSE ---
Late entry Pt. reports the first few days she had the headache, it got better with laying down, but reports it no longer helps. Pt. reports when she stands headache initially feels worse, but after awhile goes back to what it use to be. Pt. reports nothing helps headache.
[2021-04-28 15:45] VITALS: BP 124/86
[2021-04-28 15:50] LABS: Basophils % 0.4 % (0.1-2.0); Eosinophils # 0.2 K/mm3 (0.0-0.4); Eosinophils % 2.2 % (0.1-12.0); Hematocrit 36.6 % (37.0-47.0); Hemoglobin 12.2 g/dL (12.2-16.2); Lymphocytes # 1.4 K/mm3 (0.7-4.5); Lymphocytes % 14.7 % (10-50); Mean Corpuscular HGB Conc 33.5 g/dL (31.8-35.4); Mean Corpuscular Volume 86.5 fl (81-99); Mean Platelet Volume 7.7 fl (7.4-10.4); Monocytes # 0.3 K/mm3 (0.1-1.0); Monocytes % 3.6 % (1.7-9.3); Neutrophils # 7.3 K/mm3 (1.8-7.8); Platelet Count 464 K/mm3 (142-424); Red Blood Count 4.22 M/mm3 (4.20-5.40); Red Cell Distribution Width 13.6 % (11.5-17.5); White Blood Count 9.2 K/mm3 (4.5-13.0)
[2021-04-28 15:59] LABS: Activated Partial Thrombo Time 30.2 seconds (22.8-30.6); Fibrinogen 664 mg/dL (229.9-363.5); INR 0.97 (0.9-1.1)
[2021-04-28 16:00] VITALS: BP 147/95
[2021-04-28 16:13] LABS: Sodium 138 mmol/L (136-145)
[2021-04-28 16:14] LABS: Anion Gap 9.9 mEq/L (5-15); Blood Urea Nitrogen 11 mg/dl (7-17); Calcium 9.7 mg/dl (8.4-10.2); Carbon Dioxide 28 mmol/L (22.0-30.0); Chloride 104 mmol/L (98-107); Creatinine Clearance Estimated 115 mL/min (50-200); Estimated Glomerular Filt Rate 107 ml/min (>60); GFR (African American) 129 ML/MIN (>60); Glucose 96 mg/dl (74-100); Potassium 3.9 mmoL/L (3.5-5.1); Uric Acid 5.1 mg/dl (2.5-6.2)
[2021-04-28 16:15] LABS: Alanine Aminotransferase 32 U/L (12-78); Aspartate Amino Transferase 41 U/L (14-36)
--- NOTE | 2021-04-28 16:37 | PC.NURSE ---
late entry: 15:[address] Romero over telephone orders received for [facility] Labs.
--- NOTE | 2021-04-28 16:39 | PC.NURSE ---
16:[address] Romero over telephone regarding [facility] lab results. orders received to consult with anesthesia. Orders read back and verified 16:30 Spoke with WENDY Yang, Report given on pt. c/o. SUBSTITUTE BUS DRIVER reports she does not believe it is a spinal headache and recommends further Evaluation with ER. Nurse read back and verified with SUBSTITUTE BUS DRIVER 16:32 Spoke with yudelka Moran MD on SUBSTITUTE BUS DRIVER recommendations MD v/u. Orders received to discharge and instruct pt. to go to ER for further Evaluation. orders read back and verified.
[2021-04-28 16:43] LABS: Microscopic, Urine URINE MICROSCOPIC (MICROSCOPIC)
--- NOTE | 2021-04-28 16:43 | PC.NURSE ---
Discharge instructions provided. Questions encouraged and answered. Pt. v/u.
--- NOTE | 2021-04-28 16:47 | PC.NURSE ---
Pt. left unit ambulatory, per pt. request.
[2021-04-28 16:55] LABS: Appearance,Urine CLOUDY (Clear); Bilirubin,Urine Negative (Negative); Blood, Urine 3+ (Negative); Color,Urine YELLOW (Yellow); Glucose,Urine (UA) Negative (Negative); Ketones,Urine Negative (Negative); Leukocyte Esterase,Urine 1+ (Negative); Nitrate,Urine Negative (Negative); PH,Urine 7.5 (5.0-8.5); Protein,Urine Negative (Negative); Specific Gravity, Urine 1.015 (1.005-1.030); Urobilinogen,Urine 0.2 EU/dl (0.2)
[2021-04-28 17:37] LABS: Bacteria,Urine 1+ /lpf
== END 2021-04-28 16:48 | disposition home or self-care (01) ==
LOC: OBOUT 14:29 → OB 14:44
PROVIDERS: PCP Emergency Medicine; Visit Provider Obstetrics & Gynecology
DX: O90.89 Other complications of the puerperium, not elsewhere classified (principal); R51.9 Headache, unspecified; R11.0 Nausea
CPT/HCPCS: 80048; 81001; 84450; 84460; 84550; 85025; 85378; 85384; 85610; 85730; 87086; G0463

== ENCOUNTER 2021-07-19 14:28 | Emergency (ER) | payer OTHER, SELFPAY ==
[2021-07-19 14:50] VITALS: BP 155/97; PULSE 86; RESP 18; TEMP 36.8; O2SAT 98; BMI 44.9
--- NOTE | 2021-07-19 15:32 | HMH.EDUTC ---
[facility] Clinical Impression: Sinusitis Qualifiers: Sinusitis location: unspecified location Chronicity: unspecified Qualified Code(s): J32.9 - Chronic sinusitis, unspecified Disposition: Home, Self-Care Condition on Discharge: Good Instructions: Sinusitis, DI for Sinusitis Additional Instructions: *Monitor Temp, Over the counter Motrin or Tylenol as directed/as needed Tylenol every 4 hours and Motrin every 6 hours (as long as your family doctor has told you that you can take it) for fever or pain. and straight to ER if unable to lower temp less than 101.0 after medication given *Warm salt water gargles may help to soothe the throat *Throat Lozenges *Warm fluids like tea with honey may help to soothe the throat *Sleep elevated *Humidifier/Vaporizer *Flonase 2 sprays in each nostril daily but be aware that it may take 2-3 days before you notice improvement Take medication as prescribed Follow up IMMEDIATELY for new or worsening symptoms or no Noticeable improvement over the next 48-72 hours. 911 for difficulty breathing or swallowing Prescriptions: Amoxicillin/Potassium Clav [Amox-Clav 875-125 mg Tablet] 1 tab PO BID #14 tab Transmission Status: Pending to [id number] Fluticasone Propionate [Flonase 50mcg nasal spray 16gm] 1 spr NS DAILY #1 each Transmission Status: Pending to [phone] Referrals: Jose Roberto Castillo MD [Primary Care Provider] - As needed Time of Disposition: 15:46 Medical Decision Making - Elias Inquiry Pt receiving controlled substance: No Elias was queried for this patient: No Vital Signs: 07/19/21 14:50 Temperature 98.2 F Temperature Source Oral Pulse Rate [Right Brachial] 86 Respiratory Rate 18 Blood Pressure [Right Arm] 155/97 H Blood Pressure Mean [Right Arm] 116 Blood Pressure Source [Right Arm] Automatic Cuff Blood Pressure Position [Right Arm] Sitting 02 Sat by Pulse Oximetry 98 Oxygen Delivery Method Room Air [facility] [place] - General Stated complaint: possible sinus inf Time Seen by Provider: 07/19/21 15:32 Mode of Arrival: Ambulatory Source of Information: Patient Limitations: No Limitations Description of Symptoms (Recalled from Triage Doc. by RN): PATIENT C/O SINUS PRESSURE AND CONGESTION X 3 DAYS HEENT Symptoms (Recalled from RN notes): Yes Resp Symptoms (Recalled from RN notes): No Skin Symptoms (Recalled from RN notes): No MS Symptoms (Recalled from RN notes): No Functional Status (Recalled from RN notes): WNL - History of Present Illness Provider Complaint: Patient states that she has been having sinus issues for well over a week that has got worse the last 2-3 days State that she is having sinus pain and pressure and pressure like feeling behind her eyes and in her ears States that mucous went from clear to yellowish green and feels like it is draining in the back of her throat - Related Data Home Medications Medication Instructions Recorded Confirmed prenat.vits,briana,bjd-gqce-cuhnd 1 tab PO DAILY 08/31/20 07/09/21 polyethylene glycol 3350 17 17 g PO DAILY g 11/14/20 07/09/21 gram/dose oral powder magnesium 250 mg tablet 250 mg PO DAILY 03/25/21 07/09/21 Ferrous Sulfate 325 mg PO DAILY 04/24/21 07/09/21 levonorgestrel 20 mcg/24 hours (7 INTRAUTERI 07/09/21 07/09/21 yrs) 52 mg intrauterine device Previous Rx's Medication Instructions Recorded terconazole 0.8 % vaginal cream 1 appful VAGINAL HS 3 Days #20 g 05/08/21 fluconazole 150 mg tablet 150 mg PO DAILY 7 Days #7 tab 05/31/21 Amoxicillin/Potassium Clav 1 tab PO BID #14 tab 07/19/21 [Amox-Clav 875-125 mg Tablet] Fluticasone Propionate [Flonase 1 spr NS DAILY #1 each 07/19/21 50mcg nasal spray 16gm] Allergies Allergy/AdvReac Type Severity Reaction Status Date / Time No Known Allergies Allergy Verified 07/09/21 10:36 - Worker's Comp Is this a Worker's Comp case?: No [facility] History - Hepatitis A Screen Drug use history?: No High risk sexual
[2021-07-19 15:49] VITALS: BP 155/97; PULSE 86; RESP 18; TEMP 36.8; O2SAT 98
== END 2021-07-19 15:53 | disposition home or self-care (01) ==
PROVIDERS: Emergency Provider Nurse Practitioner; PCP Emergency Medicine
DX: J32.9 Chronic sinusitis, unspecified (principal); I10 Essential (primary) hypertension; Z79.51 Long term (current) use of inhaled steroids; Z79.899 Other long term (current) drug therapy; Z82.49 Family history of ischemic heart disease and other diseases of the circulatory system; Z83.3 Family history of diabetes mellitus
CPT/HCPCS: 99213; G0463

== ENCOUNTER 2022-03-20 17:16 | Emergency (ER) | payer OTHER, SELFPAY ==
[2022-03-20 18:10] VITALS: BP 120/90; PULSE 125; RESP 20; TEMP 37.3; O2SAT 95; BMI 46.5
--- NOTE | 2022-03-20 18:39 | EXP.UTC ---
Discharge Plan Disposition Patient Disposition: Home, Self-Care Condition: Good Prescriptions Prescriptions: New cefdinir 300 mg capsule 300 mg PO BID Qty: 20 0RF albuterol sulfate [Proventil HFA] 90 mcg/actuation HFA aerosol inhaler 1 inh inhalation Q6H PRN (Reason: shortness of breath or wheezing) Qty: 8.5 0RF No Action azithromycin 250 mg tablet See Rx Instructions PO .COMPLEX Qty: 6 0RF Rx Instructions: take 500 mg today (day 1), then 250 mg for 4 days (days 2-5) prednisone 20 mg tablet 20 mg PO BID 5 Days Qty: 10 0RF Mirena 20 mcg/24 hours (7 yrs) 52 mg intrauterine device INTRAUTERI cetirizine [Zyrtec] 10 mg tablet 10 mg PO DAILY PRN (Reason: allergy symptoms) Qty: 30 1RF Referrals Follow up/Referrals: Jose Roberto Castillo MD [Primary Care Provider] - See instructions Activity Restrictions/Add. Instructions Additional Instructions/Restrictions: Take medication as prescribed Use inhaler as prescribed for SOA Start oral Medication tomorrow Return if needed Clinical Impressions Clinical Impression: Acute bacterial bronchitis, Sinusitis Instructions Patient Instructions: Sinusitis, Acute Bronchitis, DI for Sinusitis, DI for Acute Bronchitis Discharge ED Provider: Fide Renteria [facility] General Stated complaint: SORE THROAT, SOA, COUGH, CONGESTION, EAR ACHE Mode of Arrival: Ambulatory Source of Information: Patient Limitations: No Limitations Time Seen by Provider: 03/20/22 18:39 Description of Symptoms (Recalled from Triage Doc. by RN): PATIENT C/O COUGH, SOA, AND HEAD CONGESTION THAT STARTED ON THURSDAY. SHE STATES SHE WAS TREATED FOR BRONCHITIS 2 WEEKS AGO HEENT Symptoms (Recalled from RN notes): No Resp Symptoms (Recalled from RN notes): Yes Skin Symptoms (Recalled from RN notes): No MS Symptoms (Recalled from RN notes): No Functional Status (Recalled from RN notes): WNL History of Present Illness Provider Complaint: Patient states that she was recently seen and treated for Bronchitis States that she finished all her medication but doesnt feel any better States that she is still having cough, sinus congestion and pressure and feels SOA at times after coughing episode States that today she was still coughing bad so she came in Related Data Home Medications Medication Instructions Recorded Confirmed levonorgestrel 20 mcg/24 hours (8 intrauterine 07/09/21 03/04/22 yrs) 52 mg intrauterine device (Mirena) Previous Rx's Medication Instructions Recorded cetirizine 10 mg tablet (Zyrtec) 10 mg PO DAILY PRN allergy 11/13/21 symptoms #30 tabs azithromycin 250 mg tablet See Rx Instructions PO .COMPLEX #6 03/04/22 tabs prednisone 20 mg tablet 20 mg PO BID 5 days #10 tabs 03/04/22 albuterol sulfate 90 mcg/actuation 1 inh inhalation Q6H PRN shortness 03/20/22 aerosol inhaler (Proventil HFA) of breath or wheezing #8.5 grams cefdinir 300 mg capsule 300 mg PO BID #20 caps 03/20/22 Allergies Allergy/AdvReac Type Severity Reaction Status Date / Time No Known Allergies Allergy Verified 03/04/22 11:09 Worker's Comp Is this a Worker's Comp case?: No PFSH PFSH Medical History (Updated 03/20/22 @ 19:29 by Fide Renteria APRN) Hyperlipidemia Surgical History (Updated 03/20/22 @ 18:25 by Megan Roger RN) H/O wisdom tooth extraction History of section History of tonsillectomy Social History (Updated 03/20/22 @ 18:27 by Megan Roger RN) Smoking Status: Never smoker alcohol intake: never substance use type: denies use current occupational status: unemployed Travel in the last 8 weeks: None ROS Obtained: Yes All systems reviewed & no additional complaints except as documented and Yes Systems reviewed as appropriate & no additional complaints except as documented Constitutional Constitutional: Reports system reviewed and no additional complaints, except as documented and Reports as per HPI ENT Ears, Nos
[2022-03-20 18:52] LABS: UTC Influenza A Antigen Negative (Negative); UTC Influenza B Antigen Negative (Negative)
--- NOTE | 2022-03-20 18:54 | XR_ITS ---
PROCEDURE INFORMATION: Exam: XR Chest Exam date and time: 03/20/2022 6:52 PM Age: 21 years old Clinical indication: Cough; Additional info: Cough, congestion x 2 weeks TECHNIQUE: Imaging protocol: Radiologic exam of the chest. Views: 2 views. COMPARISON: No relevant prior studies available. FINDINGS: Lungs: Normal pulmonary expansion. Pulmonary vasculature grossly normal. No gross pulmonary infiltrates or edema pattern. Pleural spaces: No pleural effusion. No pneumothorax. Heart/Mediastinum: Heart size normal. No tracheal/mediastinal shift. Bones/joints: No acute osseous abnormalities are identified. IMPRESSION: No acute thoracic process.
[2022-03-20 19:31] LABS: Adenovirus,PCR Not Detected (NotDetected); Bordetella Pertussis Not Detected (NotDetected); Chlamydophila Pneumoniae, PCR Not Detected (NotDetected); Coronavirus 19, PCR Not Detected (NotDetected); Coronavirus 229E Not Detected (NotDetected); Coronavirus NL63 Not Detected (NotDetected); Coronavirus OC43 Not Detected (NotDetected); Coronovirus HKU1,PCR Not Detected (NotDetected); Human Metapneumovirus Not Detected (NotDetected); Influenza A, PCR Not Detected (NotDetected); Influenza AH1, 2009 Not Detected (NotDetected); Influenza AH1, PCR Not Detected (NotDetected); Influenza AH3,PCR Not Detected (NotDetected); Influenza B, PCR Not Detected (NotDetected); Mycoplasma Pneumoniae, PCR Not Detected (NotDetected); Parainfluenza 1, PCR Not Detected (NotDetected); Parainfluenza 2, PCR Not Detected (NotDetected); Parainfluenza 3, PCR Not Detected (NotDetected); Parainfluenza 4, PCR Not Detected (NotDetected); Respiratory Syncytial Virus Not Detected (NotDetected); Rhinovirus/Enterovirus Not Detected (NotDetected)
[2022-03-20 19:51] VITALS: BP 120/90; PULSE 125; RESP 20; TEMP 37.3; O2SAT 95
== END 2022-03-20 19:55 | disposition home or self-care (01) ==
PROVIDERS: Emergency Provider Nurse Practitioner; PCP Emergency Medicine
DX: J20.9 Acute bronchitis, unspecified (principal); J32.9 Chronic sinusitis, unspecified
CPT/HCPCS: 71046; 87581; 87632; 87798; 87804; 96372; 99212; C9803; G0463; J0696; U0003; U0005

== ENCOUNTER → 2022-06-02 10:50 | Outpatient (CLI) | payer OTHER, SELFPAY | PROVIDERS: PCP Physician Assistant; Visit Provider Physician Assistant | DX: Z00.00 Encounter for general adult medical examination without abnormal findings (principal) ==

== ENCOUNTER → 2022-06-02 10:50 | Outpatient (CLI) | payer OTHER, SELFPAY ==
[2022-06-02 16:17] LABS: Basophils # 0.1 K/mm3 (0-0.2); Eosinophils # 0.2 K/mm3 (0.0-0.4); Eosinophils % 1.5 % (0.1-12.0); Hematocrit 41.7 % (37.0-47.0); Hemoglobin 13.9 g/dL (12.2-16.2); Lymphocytes # 2.1 K/mm3 (0.7-4.5); Lymphocytes % 19.9 % (10-50); Mean Corpuscular HGB Conc 33.4 g/dL (31.8-35.4); Mean Corpuscular Hemoglobin 27.4 pg (27.0-31.2); Mean Corpuscular Volume 81.9 fl (81-99); Mean Platelet Volume 8.6 fl (7.4-10.4); Monocytes # 0.5 K/mm3 (0.1-1.0); Monocytes % 5.2 % (1.7-9.3); Neutrophils # 7.5 K/mm3 (1.8-7.8); Neutrophils % 72.4 % (37.0-80.0); Platelet Count 535 K/mm3 (142-424); Red Blood Count 5.09 M/mm3 (4.20-5.40); Red Cell Distribution Width 14.3 % (11.5-17.5); White Blood Count 10.3 K/mm3 (4.8-10.8)
[2022-06-02 16:28] LABS: Alanine Aminotransferase 16 U/L (12-78); Albumin Level 4.3 g/dl (3.5-5.0); Albumin/Globulin Ratio 1.4 (1.1-1.8); Alkaline Phosphatase 113 U/L (38-126); Anion Gap 13.4 mEq/L (5-15); Aspartate Amino Transferase 23 U/L (14-36); Bilirubin,Total 0.4 mg/dl (0.2-1.3); Blood Urea Nitrogen 10 mg/dl (7-17); Calcium 8.9 mg/dl (8.4-10.2); Carbon Dioxide 26 mmol/L (22.0-30.0); Chloride 102 mmol/L (98-107); Chol/HDL Ratio 6.1 (1-3.5); Cholesterol 214 mg/dl (140-200); Estimated Glomerular Filt Rate 106 ml/min (>60); GFR (African American) 128 ML/MIN (>60); Globulin 3.1 g/dL (1.3-3.2); Glucose 104 mg/dl (74-100); HDL Cholesterol 35 mg/dl (40-60); Potassium 4.4 mmoL/L (3.5-5.1); Sodium 137 mmol/L (136-145); Total Protein,Serum 7.4 g/dl (6.3-8.2); Triglycerides 260 mg/dl (30-150); VLDL Cholesterol 52 mg/dL (0-40)
[2022-06-02 16:40] LABS: Direct LDL Cholesterol 125.89 mg/dL (100-129)
[2022-06-02 16:48] LABS: 25-OH Vitamin D, Total < 12.8 ng/mL (30-100)
[2022-06-02 16:59] LABS: Thyroid Stimulating Hormone 2.54 uIU/mL (0.465-4.68)
[2022-06-02 17:18] LABS: Vitamin B12 389 pg/mL (239-931)
[2022-06-04 13:52] LABS: Peripheral Smear Review Scanned Results
== END ==
PROVIDERS: PCP Physician Assistant; Visit Provider Physician Assistant
DX: Z00.00 Encounter for general adult medical examination without abnormal findings (principal); E55.9 Vitamin D deficiency, unspecified
CPT/HCPCS: 80053; 80061; 82306; 82607; 84443; 85025

== ENCOUNTER 2023-05-19 10:41 | Outpatient (CLI) | payer BC, SELFPAY | END 2023-05-19 23:59 | LOC: LAB.DROPOF 05-20 10:42 | PROVIDERS: PCP Student in an Organized Health Care Education/Training Program; Visit Provider Student in an Organized Health Care Education/Training Program | DX: R14.0 Abdominal distension (gaseous) (principal) | CPT/HCPCS: 87086 ==

== ENCOUNTER 2023-06-26 23:46 | Outpatient (CLI) | payer BC, SELFPAY ==
[2023-06-26 19:28] LABS: Coronavirus 19, PCR Not Detected (NotDetected); Influenza A, PCR Not Detected (NotDetected); Influenza B, PCR Not Detected (NotDetected)
== END 2023-06-26 23:59 ==
LOC: LAB.DROPOF 23:46
PROVIDERS: PCP Student in an Organized Health Care Education/Training Program; Visit Provider Student in an Organized Health Care Education/Training Program
DX: R05.8 Other specified cough (principal); J02.9 Acute pharyngitis, unspecified; R06.02 Shortness of breath; Z20.828 Contact with and (suspected) exposure to other viral communicable diseases
CPT/HCPCS: 87070; 87636

== ENCOUNTER 2023-07-14 16:55 | Emergency (ER) | payer BC, SELFPAY ==
[2023-07-14] VITALS (7 sets, daily range): BP systolic 123–152; BP diastolic 69–87; PULSE 85–115; RESP 15–18; TEMP 36.7–36.8; O2SAT 94–100; BMI 49.9
--- NOTE | 2023-07-14 17:18 | ED_ITS ---
Discharge Plan Disposition Chief Complaint: Abdominal Pain Prescriptions Prescriptions: No Action fluticasone propionate 50 mcg/actuation spray,suspension intranasal Patient Comments: USE 2 SPRAY(S) IN EACH NOSTRIL ONCE DAILY levocetirizine 5 mg tablet 5 mg PO Patient Comments: TAKE 1 TABLET BY MOUTH ONCE DAILY benzonatate 100 mg capsule 100 mg PO BID PRN (Reason: cough) Qty: 20 0RF albuterol sulfate 90 mcg/actuation HFA aerosol inhaler 1 inh inhalation QID Qty: 6.7 2RF polyethylene glycol 3350 [Miralax] 17 gram powder in packet 17 g PO DAILY Qty: 14 0RF azithromycin [Zithromax Z-Romeo] 250 mg tablet See Rx Instructions PO .COMPLEX Qty: 6 0RF Rx Instructions: For 250 mg dose pack: take 500 mg today (day 1), then 250 mg for 4 days (days 2-5) PO Referrals Follow up/Referrals: Ruth Puente PA [Primary Care Provider] - See instructions Instructions Patient Instructions: DI for Acute Abdominal Pain Discharge ED Provider: Shivani Gutierrez General Adult HPI General Chief complaint: Abdominal Pain Stated complaint: six weeks preg, and having cramps Time Seen by Provider: 07/14/23 17:04 Mode of Arrival: Ambulatory Source of Information: Patient Limitations: No Limitations Description of Symptoms (Recalled from ER Triage Doc. by RN): pt c/o RLQ cramping 4/10 on the pain scale. pt thinks she is about 6wks . pts OB will be Dr. Irizarry, her first appointment is July 27. pt presents very anxious. Related Data Home Medications Medication Instructions Recorded Confirmed fluticasone propionate 50 intranasal 06/26/23 06/26/23 mcg/actuation nasal spray,suspension levocetirizine 5 mg tablet 5 mg PO 06/26/23 06/26/23 Previous Rx's Medication Instructions Recorded polyethylene glycol 3350 17 gram 17 g PO DAILY #14 ea 05/19/23 oral powder packet (Miralax) albuterol sulfate 90 mcg/actuation 1 inh inhalation QID #6.7 grams 06/26/23 aerosol inhaler benzonatate 100 mg capsule 100 mg PO BID PRN cough #20 caps 06/26/23 azithromycin 250 mg tablet See Rx Instructions PO .COMPLEX #6 06/27/23 (Zithromax Z-Romeo) tabs Allergies Allergy/AdvReac Type Severity Reaction Status Date / Time No Known Allergies Allergy Verified 06/26/23 13:07 [facility] Disclaimer: The information contained in this section may have been updated after the patient was seen, as this information can be updated by other users. Medical History Hyperlipidemia Surgical History H/O wisdom tooth extraction History of section History of tonsillectomy Family History Other No significant family history Social History Smoking Status: Never smoker alcohol intake: never substance use type: denies use current occupational status: unemployed Travel in the last 8 weeks: None ROS Obtained: Yes Systems reviewed as appropriate & no additional complaints except as documented Physical Exam General General appearance: alert and in no apparent distress Head Head exam: atraumatic and normal inspection Eye Eye exam: Present normal appearance, PERRL and EOMI ENT ENT exam: Present normal exam, normal oropharynx and mucous membranes moist Neck Neck exam: Present normal inspection, full ROM and trachea midline; Absent lymphadenopathy Chest Chest inspection: Present normal inspection and symmetric chest wall rise Respiratory Respiratory exam: Present normal lung sounds bilaterally; Absent accessory muscle use Cardiovascular Cardiovascular exam: Present regular rate, normal rhythm, normal heart sounds, +S1 and +S2 Abdominal Exam Abdominal exam: Present soft and normal bowel sounds; Absent tenderness, guarding or rebound Extremities Exam Extremities exam: Present normal inspection and full ROM Neurological Exam Neurological exam: Present alert, oriented X3 and CN II-XII intact Psychiatric Psychiatric exam: Present normal affect and normal mood Skin Skin exam: Present warm, dry and normal color Lymphatic Lymphatic Findings: no adenopathy Medical Decision Making Vital Signs: 07/14/23 17:13 Temperature 98.2 F Temperature Source Oral Pulse Rate [Left] 113 H Respiratory Rate 18 Blood Pressure [Right Arm] 152/87 H Blood Pressure Mean [Right Arm] 108 Blood Pressure Source [Right Arm] Automatic Cuff Blood Pressure Position [Right Arm] Sitting 02 Sat by Pulse Oximetry 99 Orders (Tests/Meds): ORDERS Category Date Time Status POCUS Point of Care (ER Only) Stat Exams 07/14/23 17:13 Ordered Complete Blood Count Auto Diff Stat Lab 07/14/23 17:13 Ordered Comprehensive Metabolic Panel Stat Lab 07/14/23 17:13 Ordered HCG,Quantitative Stat Lab 07/14/23 17:12 Ordered Urinalysis and Microscopic Stat Lab 07/14/23 17:12 Ordered Medical Decision Narrative: In summary patient is a [age, sex] who presents to the emergency department for evaluation of [complaint]. Patient is [hemodynamically stable/unstable] upon arrival, [febrile/afebrile]. [Unremarkable physical exam, nonfocal exam versus focal remarkable exam]. Differential diagnosis includes [DDx]. Initial workup will be conducted with [hematologic labs, imaging, respiratory swab, describe workup]. Initial interventions include [crystalloid bolus, medications, p.o. challenge, etc.] initial workup reviewed by me [hematologic labs are remarkable for... Imaging remarkable for... Urinalysis remarkable for]. Upon repeat evaluation [patient had acceptable resolution of symptoms, had persistent pain for which additional interventions were conducted (describe interventions), tolerated p.o., was ambulatory, etc.]. Given this [patient is appropriate for discharge at this time and will be discharged with a prescription for... The case was discussed with hospital medicine regarding management and they will admit the patient their service for continued evaluation at this time... Etc.] Places where you can increase complexity: I informally interpreted the patient's chest x-ray or CT read and is remarkable for... Documenting what the monitor and storage bin tender shows with rate and rhythm Consideration of test but deferring. Ex: I considered chest x-ray on this patient however given that they have no oxygen requirement and are clear to auscultation all lung woods will be deferred. Social determinants of health: Given that patient is undomiciled increases complexity. Given that patient has polysubstance abuse compounds all aspects of care
--- NOTE | 2023-07-14 17:20 | US_ITS ---
PROCEDURE INFORMATION: Exam: US , Transvaginal Exam date and time: 07/14/2023 6:21 PM Age: 23 years old Clinical indication: complicated by abdominal or pelvic pain; Right lower quadrant; First trimester (<14 weeks 0 days); Gestational age or lmp: 5 weeks 6 days; ; Additional info: , rlq pain, 5 wks LABS AND CLINICAL REPORTS: Last menstrual period start date: 06/03/2023 Gestational age (Established): 5 w 6 d Estimated due date (Established): 03/09/2024 TECHNIQUE: Imaging protocol: Real-time transvaginal obstetrical ultrasound of the maternal pelvis with image documentation. Transvaginal imaging was used for better evaluation of the fetus, adnexa, and/or cervix. COMPARISON: US OB BIOPHYSICAL PROFILE 04/04/2021 2:57 PM FINDINGS: Gestation: Yolk sac measures 4.1 mm. Normal-appearing pole. At real-time sonography, technologist reports seen cardiac activity, although heart rate can not be accurately measured due to early age of gestation. Small subchorionic hemorrhage noted BIOMETRY: Gestational age (AUA): 6 w 0 d Estimated due date (AUA): 03/08/2024 [place] length (CRL): 3.19 mm. EGA (CRL) is 5 w 7 d MATERNAL: Right ovary/adnexa: Right ovary measures 1.86 cm x 2.73 cm x 3.38 cm. Right ovarian volume is 8.99 mL. Left ovary/adnexa: Left ovary measures 3.48 cm x 2.34 cm x 2.26 cm. Left ovarian volume is 9.64 mL. 1.7 cm simple left ovarian cyst. IMPRESSION: 1. Single intrauterine gestation measuring 6 weeks 0 days. Accurate heart rate can not be obtained although there does appear to be cardiac activity. Attention on follow-up studies indicated to ensure viability. 2. Small subchorionic hemorrhage
--- NOTE | 2023-07-14 17:20 | PC.NURSE ---
called radiology for vaginal us, radiology wants a + preg test before they call the us tech
[2023-07-14 17:26] LABS: Basophils # 0.1 K/mm3 (0-0.2); Eosinophils # 0.2 K/mm3 (0.0-0.4); Eosinophils % 1.6 % (0.1-12.0); Hematocrit 42.4 % (37.0-47.0); Hemoglobin 13.7 g/dL (12.2-16.2); Lymphocytes # 3.4 K/mm3 (0.7-4.5); Lymphocytes % 35.9 % (10-50); Mean Corpuscular HGB Conc 32.3 g/dL (31.8-35.4); Mean Corpuscular Hemoglobin 27.4 pg (27.0-31.2); Mean Corpuscular Volume 84.8 fl (81-99); Mean Platelet Volume 8.2 fl (7.4-10.4); Monocytes # 0.5 K/mm3 (0.1-1.0); Monocytes % 5.6 % (1.7-9.3); Neutrophils # 5.4 K/mm3 (1.8-7.8); Platelet Count 444 K/mm3 (142-424); Red Cell Distribution Width 14.5 % (11.5-17.5); White Blood Count 9.6 K/mm3 (4.8-10.8)
[2023-07-14 17:28] LABS: Microscopic, Urine URINE MICROSCOPIC (MICROSCOPIC)
[2023-07-14 17:33] LABS: Alanine Aminotransferase 23 U/L (12-78); Albumin Level 4.2 g/dl (3.5-5.0); Albumin/Globulin Ratio 1.3 (1.1-1.8); Alkaline Phosphatase 79 U/L (38-126); Anion Gap 11.7 mEq/L (5-15); Aspartate Amino Transferase 31 U/L (14-36); Bilirubin,Total 0.3 mg/dl (0.2-1.3); Blood Urea Nitrogen 9 mg/dl (7-17); Calcium 9.2 mg/dl (8.4-10.2); Carbon Dioxide 28 mmol/L (22.0-30.0); Chloride 103 mmol/L (98-107); Creatinine Clearance Estimated 98 mL/min (50-200); Estimated Glomerular Filt Rate 89 ml/min (>60); GFR (African American) 108 ML/MIN (>60); Globulin 3.2 g/dL (1.3-3.2); Glucose 97 mg/dl (74-100); Potassium 3.7 mmoL/L (3.5-5.1); Sodium 139 mmol/L (136-145); Total Protein,Serum 7.4 g/dl (6.3-8.2)
[2023-07-14 17:40] LABS: Appearance,Urine CLEAR (Clear); Bilirubin,Urine Negative (Negative); Blood, Urine Negative (Negative); Color,Urine YELLOW (Yellow); Glucose,Urine (UA) Negative (Negative); Ketones,Urine Negative (Negative); Leukocyte Esterase,Urine TRACE (Negative); Nitrate,Urine Negative (Negative); PH,Urine 7.5 (5.0-8.5); Protein,Urine Negative (Negative); Specific Gravity, Urine 1.015 (1.005-1.030); Urobilinogen,Urine 0.2 EU/dl (0.2)
[2023-07-14 17:50] LABS: HCG,Quantitative 12074 mIU/ml (0-5.42)
[2023-07-14 17:53] LABS: Bacteria,Urine Trace /lpf; Squamous Epithelial Cell,Urine Occasional #/hpf (0-5)
--- NOTE | 2023-07-14 18:01 | PC.NURSE ---
Called radiology, notified that the & HCG quant test has resulted. They stated she is already on her way in .
--- NOTE | 2023-07-14 18:10 | ED_ITS ---
Discharge Plan Disposition Patient Disposition: Home, Self-Care Condition: Good Prescriptions Prescriptions: No Action fluticasone propionate 50 mcg/actuation spray,suspension 50 mcg intranasal DAILY Patient Comments: USE 2 SPRAY(S) IN EACH NOSTRIL ONCE DAILY levocetirizine 5 mg tablet 5 mg PO DAILY Patient Comments: TAKE 1 TABLET BY MOUTH ONCE DAILY albuterol sulfate 90 mcg/actuation HFA aerosol inhaler 1 inh inhalation QID Qty: 6.7 2RF Referrals Follow up/Referrals: Ruth Puente PA [Primary Care Provider] - See instructions Activity Restrictions/Add. Instructions Additional Instructions/Restrictions: You were evaluated in the emergency department today. At this time, you have a very small subchorionic hemorrhage, which is very common and can resolve on its own. Take Tylenol at home as needed for pain. Keep close follow-up with an [employer]. Return to the emergency department for new or worsening symptoms, such as fever, intractable nausea vomiting, or significant worsening abdominal pain. Clinical Impressions Clinical Impression: Subchorionic hemorrhage in first trimester Abdominal pain in Qualifiers: Trimester: first trimester Qualified Code(s): O26.891 - Other specified related conditions, first trimester Instructions Patient Instructions: DI for Abdominal Pain -- Early Discharge ED Provider: Shivani Gutierrez General Adult HPI General Chief complaint: Abdominal Pain Stated complaint: six weeks preg, and having cramps Time Seen by Provider: 07/14/23 17:04 Mode of Arrival: Ambulatory Source of Information: Patient Limitations: No Limitations Description of Symptoms (Recalled from ER Triage Doc. by RN): pt c/o RLQ cramping 4/10 on the pain scale. pt thinks she is about 6wks . pts OB will be Dr. Irizarry, her first appointment is July 27. pt presents very anxious. History of Present Illness HPI narrative: This patient is a 23-year-old at estimated 5-6 weeks gestational age presenting to the emergency department for evaluation with concern for right lo wer quadrant pain and cramping. She notes that is been persistent for the past week. She is also had nausea and vomiting, which was typical for her last , however this twinge has been coming and going in the same spot for about a weeks that she is concerned. No dysuria, abnormal vaginal discharge, bleeding, or other concerns. No fevers, chills, anorexia, or other concerns. She does still have her appendix. She has not yet seen OB for this, as the is still very early. Related Data Home Medications Medication Instructions Recorded Confirmed fluticasone propionate 50 50 mcg intranasal DAILY 06/26/23 07/14/23 mcg/actuation nasal spray,suspension levocetirizine 5 mg tablet 5 mg PO DAILY 06/26/23 07/14/23 Previous Rx's Medication Instructions Recorded albuterol sulfate 90 mcg/actuation 1 inh inhalation QID #6.7 grams 06/26/23 aerosol inhaler Allergies Allergy/AdvReac Type Severity Reaction Status Date / Time No Known Allergies Allergy Verified 06/26/23 13:07 [facility] Disclaimer: The information contained in this section may have been updated after the patient was seen, as this information can be updated by other users. Medical History Hyperlipidemia Surgical History H/O wisdom tooth extraction History of section History of tonsillectomy Family History Other No significant family history Social History Smoking Status: Never smoker alcohol intake: never substance use type: denies use current occupational status: unemployed Travel in the last 8 weeks: None ROS Obtained: Yes All systems reviewed & no additional complaints except as documented Physical Exam General General appearance: alert and in no apparent distress Head Head exam: atraumatic and normocephalic Eye Eye exam: Present normal appearance, PERRL and EOMI ENT ENT exam: Present normal exam, normal oropharynx, mucous membranes moist and normal external ear exam Neck Neck exam: Present normal inspection, full ROM and trachea midline; Absent tenderness Chest Chest inspection: Present normal inspection and symmetric chest wall rise; Absent tenderness Respiratory Respiratory exam: Present normal lung sounds bilaterally; Absent respiratory distress, wheezes, stridor or accessory muscle use Cardiovascular Cardiovascular exam: Present regular rate and normal rhythm Abdominal Exam Abdominal exam: Present soft; Absent distention, tenderness or guarding Extremities Exam Extremities exam: Present normal inspection, full ROM and normal capillary refill; Absent tenderness or edema Back Exam Back exam: Present normal inspection and full ROM; Absent tenderness Neurological Exam Neurological exam: Present alert, oriented X3, CN II-XII intact and normal gait; Absent motor sensory deficit Psychiatric Psychiatric exam: Present normal affect and normal mood Skin Skin exam: Present warm and dry Medical Decision Making Medical Records Medical records reviewed: Yes I reviewed the patient's medical records. Elias Inquiry Pt receiving controlled substance: No Vital Signs: 07/14/23 17:13 07/14/23 17:01 07/14/23 17:31 Temperature 98.2 F Temperature Source Oral Pulse Rate 115 H 99 H Pulse Rate [Left] 113 H Respiratory Rate 18 Blood Pressure 125/77 Blood Pressure [Right Arm] 152/87 H Blood Pressure Mean Blood Pressure Mean [Right Arm] 108 Blood Pressure Source Blood Pressure Source [Right Arm] Automatic Cuff Blood Pressure Position Blood Pressure Position [Right Arm] Sitting 02 Sat by Pulse Oximetry 99 99 96 Oxygen Delivery Method Room Air 07/14/23 18:01 07/14/23 19:13 07/14/23 19:30 Temperature Temperature Source Pulse Rate 109 H 88 100 H Pulse Rate [Left] Respiratory Rate 18 Blood Pressure 123/69 136/87 125/83 Blood Pressure [Right Arm] Blood Pressure Mean 103 Blood Pressure Mean [Right Arm] Blood Pressure Source Blood Pressure Source [Right Arm] Blood Pressure Position Blood Pressure Position [Right Arm] 02 Sat by Pulse Oximetry 97 100 97 Oxygen Delivery Method Room Air Room Air 07/14/23 20:12 Temperature 98.1 F Temperature Source Oral Pulse Rate 85 Pulse Rate [Left] Respiratory Rate 15 Blood Pressure 125/83 Blood Pressure [Right Arm] Blood Pressure Mean Blood Pressure Mean [Right Arm] Blood Pressure Source Automatic Cuff Blood Pressure Source [Right Arm] Blood Pressure Position Sitting Blood Pressure Position [Right Arm] 02 Sat by Pulse Oximetry Oxygen Delivery Method Room Air Lab Data Lab results reviewed: Yes I reviewed the patient's lab results. Lab Results 07/14/23 17:09: WBC 9.6, RBC 5.00, Hgb 13.7, Hct 42.4, MCV 84.8, MCH 27.4, MCHC 32.3, RDW 14.5, Plt Count 444 H, MPV 8.2, Neut % (Auto) 56.0, Lymph % (Auto) 35.9, [place] % (Auto) 5.6, Eos % (Auto) 1.6, Baso % (Auto) 1.0, Neut # (Auto) 5.4, Lymph # (Auto) 3.4, [place] # (Auto) 0.5, Eos # (Auto) 0.2, Baso # (Auto) 0.1, Sodium 139, Potassium 3.7, Chloride 103, Carbon Dioxide 28, Anion Gap 11.7, BUN 9, Creatinine 0.80, Estimated Creat Clear 98, Estimated GFR 89, Est GFR ( Amer) 108, Glucose 97, Calcium 9.2, Total Bilirubin 0.3, AST 31, ALT 23, Alkaline Phosphatase 79, Total Protein 7.4, Albumin 4.2, Globulin 3.2, Albumin/Globulin Ratio 1.3, HCG, Quant 13593 H 07/14/23 17:24: Urine Color Yellow, Urine Appearance Clear, Urine pH 7.5, Ur Specific [place] 1.015, Urine Protein Negative, Urine Glucose (UA) Negative, Urine Ketones Negative, Urine Blood Negative, Urine Nitrate Negative, Urine Bilirubin Negative, Urine Urobilinogen 0.2, Ur Leukocyte Esterase Trace, Urine RBC None, Urine WBC 3-5, Ur Squamous Epith Cells Occasional, Urine Bacteria Trace 07/14/23 17:09 07/14/23 17:09 Orders (Tests/Meds): ORDERS Category Date Time Status POCUS Point of Care (ER Only) Stat Exams 07/14/23 17:13 Completed Complete Blood Count Auto Diff Stat Lab 07/14/23 17:09 Completed Comprehensive Metabolic Panel Stat Lab 07/14/23 17:09 Completed HCG,Quantitative Stat Lab 07/14/23 17:09 Completed Urinalysis and Microscopic Stat Lab 07/14/23 17:24 Completed US OB transvaginal Stat Ultrasound 07/14/23 17:20 Completed Medical Decision Narrative: In summary, this patient is a 23-year-old female presenting to the Emergency Department for evaluation of right lower quadrant abdominal pain in the setting of . Differential diagnoses considered include but are not limited to ectopic , ovarian cyst, appendicitis, ovarian torsion, cystitis, physiologic change of . Ruling out the most morbid conditions drove assessment. It should be noted patient's history includes obesity which is not at goal therapy. This complicates all aspects of care by increasing patient's risk for morbidity. On exam, the patient is nontoxic-appearing with reassuring vital signs on cardiac telemetry. She has mild right lower quadrant tenderness, however abdominal exam is otherwise benign. She has not had fevers, anorexia, or other concerns that would suggest appendicitis, and the symptoms have also been going on for approximately a week. workup included CBC, CMP, serum hCG, and transvaginal ultrasound. I reviewed prior labs which demonstrated a type and screen that is Rh+, so no indication for RhoGAM. I independently interpreted ultrasound prior to the radiologist read and noted intrauterine . Please see their read for final interpretation. Labs do not demonstrate any other acutely concerning abnormalities, such as significant leukocytosis. On reassessment, the patient is resting comfortably. Abdominal exam remains benign. Given we confirmed intrauterine , this makes ectopic very unlikely. No significant leukocytosis, fever, or other concerns that would suggest appendicitis. No large ovarian cyst that would concern me for torsion. Given reassuring workup and exam, feel she is appropriate for discharge with instructions for supportive management and close follow-up. She was discharged in stable condition. Critical Care Critical Care Time Critical Care Time: No
--- NOTE | 2023-07-14 19:00 | PC.NURSE ---
PT ARRIVED BACK TO ROOM FROM ULTRASOUND
== END 2023-07-14 20:14 | disposition home or self-care (01) ==
PROVIDERS: Emergency Provider Emergency Medicine; PCP Physician Assistant
DX: O46.8X1 Other antepartum hemorrhage, first trimester (principal); O26.891 Other specified pregnancy related conditions, first trimester; O21.9 Vomiting of pregnancy, unspecified; O99.281 Endocrine, nutritional and metabolic diseases complicating pregnancy, first trimester; R10.31 Right lower quadrant pain; E78.5 Hyperlipidemia, unspecified; Z3A.01 Less than 8 weeks gestation of pregnancy
CPT/HCPCS: 76817; 80053; 81001; 84702; 85025; 99285

== ENCOUNTER 2023-07-28 14:18 | Outpatient (CLI) | payer BC, SELFPAY ==
--- NOTE | 2023-07-28 14:19 | US_ITS ---
PROCEDURE: US OB <= 14 WEEKS FETUS CLINICAL INDICATION: Dates, check possible twin gestation COMPARISON: No exams were available for comparison FINDINGS: Transvaginal sonographic images of the pelvis were obtained. From her last menstrual period she is 7weeks 6days. An intrauterine gestational sac is present with a pole with a crown-rump length of 1.45cm This correlates to a gestational age of 7weeks 6days. heart tones are present with an FHR of 153bpm. Yolk sac is noted. The yolk sac measures 5.8mm. The right ovary is seen and appears normal. Appears polycystic. The left ovary is seen and appears normal. Appears polycystic. There is no fluid in the cul-de-sac. IMPRESSION: 1. Single, viable fetus within the uterine cavity. 2. Both ovaries are seen and appear polycystic. 3. Size and dates are congruent and the JOANIE will remain 03/09/2024. Dictated by: Brodie Ellis MD 07/29/2023 04:01 Brodie Ellis MD in OV 07/29/2023 04:01
[2023-07-28 15:18] LABS: Basophils # 0.1 K/mm3 (0-0.2); Basophils % 1.2 % (0.1-2.0); Eosinophils # 0.2 K/mm3 (0.0-0.4); Eosinophils % 2.3 % (0.1-12.0); Hematocrit 41.9 % (37.0-47.0); Hemoglobin 13.5 g/dL (12.2-16.2); Lymphocytes # 2.8 K/mm3 (0.7-4.5); Lymphocytes % 31.1 % (10-50); Mean Corpuscular HGB Conc 32.3 g/dL (31.8-35.4); Mean Corpuscular Volume 86.7 fl (81-99); Monocytes # 0.3 K/mm3 (0.1-1.0); Monocytes % 3.6 % (1.7-9.3); Neutrophils # 5.5 K/mm3 (1.8-7.8); Neutrophils % 61.7 % (37.0-80.0); Platelet Count 376 K/mm3 (142-424); Red Blood Count 4.84 M/mm3 (4.20-5.40); Red Cell Distribution Width 14.5 % (11.5-17.5); White Blood Count 8.9 K/mm3 (4.8-10.8)
[2023-07-28 16:08] LABS: Chloride 103 mmol/L (98-107); Potassium 4.1 mmoL/L (3.5-5.1); Sodium 133 mmol/L (136-145)
[2023-07-28 16:11] LABS: Alanine Aminotransferase 21 U/L (12-78); Albumin Level 3.8 g/dl (3.5-5.0); Albumin/Globulin Ratio 1.4 (1.1-1.8); Alkaline Phosphatase 97 U/L (38-126); Anion Gap 8.1 mEq/L (5-15); Aspartate Amino Transferase 24 U/L (14-36); Bilirubin,Total 0.2 mg/dl (0.2-1.3); Blood Urea Nitrogen 10 mg/dl (7-17); Carbon Dioxide 26 mmol/L (22.0-30.0); Estimated Glomerular Filt Rate 124 ml/min (>60); GFR (African American) 150 ML/MIN (>60); Globulin 2.7 g/dL (1.3-3.2); Total Protein,Serum 6.5 g/dl (6.3-8.2)
[2023-07-28 16:12] LABS: Calcium 9.3 mg/dl (8.4-10.2); Glucose 89 mg/dl (74-100)
[2023-07-29 11:21] LABS: Rubella Antibodies, IgG 1.62 index (Immune >0.99)
[2023-07-29 12:16] LABS: HIV Screen 4th Generation wRfx Non Reactive (Non Reactive); Rapid Plasma Reagin Ab Titer Non Reactive titer (NonRea<1:1)
[2023-07-30 09:36] LABS: Hepatitis B Surface Antigen Negative
[2023-07-30 09:37] LABS: Hepatitis C Antibody Non Reactive
== END 2023-07-28 23:59 ==
LOC: RAD 14:19
PROVIDERS: PCP Student in an Organized Health Care Education/Training Program; Visit Provider Obstetrics & Gynecology
DX: O26.891 Other specified pregnancy related conditions, first trimester (principal); Z3A.01 Less than 8 weeks gestation of pregnancy; O20.8 Other hemorrhage in early pregnancy
CPT/HCPCS: 36415; 76801; 80053; 85025; 86593; 86703; 86762; 86850; 87340; 87380; G0432

== ENCOUNTER 2023-07-30 07:59 | Outpatient (CLI) | payer BC, SELFPAY ==
[2023-07-30 12:29] LABS: Collection Time,Urine 24 hours; Creatinine 24 Hour,Urine 3015 mg/24hr (630-2500); Creatinine,Urine Random 201 mg/dL (Not Estab.); Total Volume,Urine 1500 mL (600-1600)
[2023-07-30 12:30] LABS: Total Protein 24 Hour,Urine 75 mg/24 hr (40-90); Total Protein,Urine Random < 5.0 mg/dL (0.0-12.0)
[2023-07-30 12:35] LABS: Creatinine Clearance Urine 258.1 mL/min (25-115); Patient Height,Urine 65 inches; Patient Weight,Urine 299 lbs
== END 2023-07-30 23:59 ==
LOC: LAB 07:59 → LAB.DROPOF 08:00
PROVIDERS: PCP Student in an Organized Health Care Education/Training Program; Visit Provider Obstetrics & Gynecology
DX: O26.891 Other specified pregnancy related conditions, first trimester (principal); Z3A.08 8 weeks gestation of pregnancy
CPT/HCPCS: 82575; 84155

== ENCOUNTER 2023-08-25 16:28 | Outpatient (CLI) | payer BC, SELFPAY | END 2023-08-25 23:59 | LOC: LAB.DROPOF 16:28 | PROVIDERS: PCP Obstetrics & Gynecology; Visit Provider Obstetrics & Gynecology | DX: O26.891 Other specified pregnancy related conditions, first trimester (principal); Z3A.11 11 weeks gestation of pregnancy; B96.89 Other specified bacterial agents as the cause of diseases classified elsewhere | CPT/HCPCS: 87086 ==

== ENCOUNTER 2023-08-26 17:57 | Emergency (ER) | payer BC, SELFPAY ==
[2023-08-26 18:30] VITALS: BP 143/92; PULSE 95; RESP 18; TEMP 37.3; O2SAT 99; BMI 49.6
--- NOTE | 2023-08-26 18:36 | ED_ITS ---
Discharge Plan Disposition Patient Disposition: Home, Self-Care Condition: Good Prescriptions Prescriptions: New azithromycin [Zithromax] 250 mg tablet 250 mg PO UD DOSE PK Qty: 6 0RF Rx Instructions: Take two (2) tablets today, then one (1) tablet days #2 thru #5 No Action Classic 28 mg iron- 800 mcg tablet 1 tab PO DAILY Referrals Follow up/Referrals: Diane Brantley PA [Primary Care Provider] - See instructions Activity Restrictions/Add. Instructions Additional Instructions/Restrictions: Drink plenty of fluids. Take tylenol for pain or fever. Take the medications as directed. Follow up with your regular doctor. GO TO THE ER FOR ANY WORSENING SYMPTOMS Clinical Impressions Clinical Impression: Sinusitis, Acute viral syndrome, Instructions Patient Instructions: DI for Sinusitis, DI for Viral Syndrome Discharge ED Provider: Osiel Craig [facility] [place] HPI General Stated complaint: congestion, cough, h/a, bilateral ear pain Time Seen by Provider: 08/26/23 18:36 History of Present Illness Provider Complaint: She states that for the past 3 days she has had sinus congestion, ear pain, low grade fever, and malaise. She states that she has a history of getting frequent sinus infections and that is what she thinks is happening now. She is 12 weeks . She denies any abdominal pain or complaints related to that. Related Data Home Medications Medication Instructions Recorded Confirmed vits no.126-ferrous fum 1 tab PO DAILY 08/06/23 08/26/23 28 mg iron-folic acid 800 mcg tablet (Classic ) Previous Rx's Medication Instructions Recorded azithromycin 250 mg tablet 250 mg PO UD DOSE PK #6 tabs 08/26/23 (Zithromax) Allergies Allergy/AdvReac Type Severity Reaction Status Date / Time No Known Allergies Allergy Verified 08/26/23 18:47 [facility] Disclaimer: The information contained in this section may have been updated after the patient was seen, as this information can be updated by other users. Medical History (Updated 08/26/23 @ 18:57 by Osiel Craig APRN) Hypertension affecting Hyperlipidemia Surgical History H/O wisdom tooth extraction History of tonsillectomy History of section Family History Other No significant family history Social History Smoking Status: Never smoker alcohol intake: never substance use type: denies use current occupational status: unemployed Travel in the last 8 weeks: None ROS Obtained: Yes All systems reviewed & no additional complaints except as documented Constitutional Constitutional: Reports as per HPI, Reports fever(s) and Reports poor appetite Eyes Eyes: Reports system reviewed and no additional complaints, except as documented ENT Ears, Nose, Mouth, and Throat: Reports as per HPI Cardiovascular Cardiovascular: Reports system reviewed and no additional complaints, except as documented and Denies chest pain Respiratory Respiratory: Denies shortness of breath, Denies chest congestion, Reports cough, Denies stridor and Denies wheezing Gastrointestinal Gastrointestingal: Reports system reviewed and no additional complaints, except as documented; Denies abdominal pain, diarrhea or vomiting Musculoskeletal Musculoskeletal: Reports system reviewed and no additional complaints, except as documented and Denies arthralgias Integumentary/Breasts Skin/Breast: Reports system reviewed and no additional complaints, except as documented and Denies rash Neurologic Neurologic: Denies paresthesias Allergic/Immunologic Allergic/Immunologic: Denies wheezing Physical Exam General General appearance: alert and in no apparent distress Eye Eye exam: Present normal appearance, PERRL and EOMI ENT ENT exam: Present mucous membranes moist and normal external ear exam Expanded ENT Exam External ear exam: Present normal external inspection TM/Canal exam: Bilateral TM: erythema and bulging Nose exam: Absent sinus tenderness Nasal speculum exam: Bilateral: normal Mouth exam: Present normal external inspection; Absent drooling Teeth exam: Present normal inspection Throat exam: Present tonsillar erythema and tonsillomegaly Neck Neck exam: Present normal inspection, full ROM and trachea midline; Absent tenderness, lymphadenopathy or thyromegaly Chest Chest inspection: Present normal inspection and symmetric chest wall rise; Absent tenderness or rash Respiratory Respiratory exam: Present normal lung sounds bilaterally; Absent respiratory distress, wheezes, stridor or accessory muscle use Cardiovascular Cardiovascular exam: Present regular rate, normal rhythm and normal heart sounds Abdominal Exam Abdominal exam: Present soft; Absent distention, tenderness, guarding, rebound or rigidity Extremities Exam Extremities exam: Present normal inspection, full ROM and normal capillary refill; Absent tenderness or calf tenderness Back Exam Back exam: Present normal inspection and full ROM; Absent tenderness Neurological Exam Neurological exam: Present alert and oriented X3 Psychiatric Psychiatric exam: Present normal affect and normal mood Skin Skin exam: Present warm, dry, intact and normal color Lymphatic Lymphatic Findings: no adenopathy Medical Decision Making Medical Records Medical records reviewed: No I reviewed the patient's medical records. Elias Inquiry Pt receiving controlled substance: No Lab Data Lab results reviewed: Yes I reviewed the patient's lab results.
[2023-08-26 19:16] LABS: Adenovirus,PCR Not Detected (NotDetected); Coronavirus 19, PCR Not Detected (NotDetected); Coronavirus 229E Not Detected (NotDetected); Coronavirus NL63 Not Detected (NotDetected); Coronavirus OC43 Not Detected (NotDetected); Coronovirus HKU1,PCR Not Detected (NotDetected); Human Metapneumovirus Not Detected (NotDetected); Influenza A, PCR Not Detected (NotDetected); Influenza AH1, 2009 Not Detected (NotDetected); Influenza AH1, PCR Not Detected (NotDetected); Influenza AH3,PCR Not Detected (NotDetected); Influenza B, PCR Not Detected (NotDetected); Parainfluenza 1, PCR Not Detected (NotDetected); Parainfluenza 2, PCR Not Detected (NotDetected); Parainfluenza 3, PCR Not Detected (NotDetected); Parainfluenza 4, PCR Not Detected (NotDetected); Respiratory Syncytial Virus Not Detected (NotDetected)
[2023-08-26 19:22] VITALS: BP 143/92; PULSE 95; RESP 18; TEMP 37.3; O2SAT 99
[2023-08-26 22:18] LABS: Rhinovirus/Enterovirus Detected (NotDetected)
== END 2023-08-26 19:22 | disposition home or self-care (01) ==
PROVIDERS: Emergency Provider Nurse Practitioner Family; PCP Student in an Organized Health Care Education/Training Program
DX: O26.891 Other specified pregnancy related conditions, first trimester (principal); J01.90 Acute sinusitis, unspecified; B34.1 Enterovirus infection, unspecified; H92.03 Otalgia, bilateral; R50.9 Fever, unspecified; R09.81 Nasal congestion; Z3A.12 12 weeks gestation of pregnancy
CPT/HCPCS: 87632; 87635; 99212; 99214; G0463

== ENCOUNTER 2023-09-16 18:00 | Outpatient (CLI) | payer BC, SELFPAY ==
[2023-09-16 18:32] LABS: Adenovirus,PCR Not Detected (NotDetected); Coronavirus 19, PCR Not Detected (NotDetected); Coronavirus 229E Not Detected (NotDetected); Coronavirus NL63 Not Detected (NotDetected); Coronavirus OC43 Not Detected (NotDetected); Coronovirus HKU1,PCR Not Detected (NotDetected); Human Metapneumovirus Not Detected (NotDetected); Influenza A, PCR Not Detected (NotDetected); Influenza AH1, 2009 Not Detected (NotDetected); Influenza AH1, PCR Not Detected (NotDetected); Influenza AH3,PCR Not Detected (NotDetected); Influenza B, PCR Not Detected (NotDetected); Parainfluenza 1, PCR Not Detected (NotDetected); Parainfluenza 2, PCR Not Detected (NotDetected); Parainfluenza 3, PCR Not Detected (NotDetected); Parainfluenza 4, PCR Not Detected (NotDetected); Respiratory Syncytial Virus Not Detected (NotDetected)
[2023-09-16 22:51] LABS: Rhinovirus/Enterovirus Detected (NotDetected)
== END 2023-09-16 23:59 | disposition home or self-care (01) ==
LOC: LAB.DROPOF 09-17 08:21
PROVIDERS: PCP Nurse Practitioner Family; Visit Provider Nurse Practitioner Family
DX: R06.09 Other forms of dyspnea; O26.891 Other specified pregnancy related conditions, first trimester; R05.8 Other specified cough; R09.81 Nasal congestion; R11.10 Vomiting, unspecified; Z3A.15 15 weeks gestation of pregnancy; Z20.828 Contact with and (suspected) exposure to other viral communicable diseases; B34.1 Enterovirus infection, unspecified
CPT/HCPCS: 87632; 87635

== ENCOUNTER 2023-10-20 12:52 | Outpatient (CLI) | payer BC, SELFPAY ==
--- NOTE | 2023-10-20 12:52 | US_ITS ---
PROCEDURE: US OB /MATERNAL DETAIL CLINICAL INDICATION: 20 week anatomy scan COMPARISON: US US OB <= 14 WEEKS FETUS from 07/28/2023 FINDINGS: Transabdominal sonographic images of the pelvis were obtained. From her established due date she is 19 weeks 6 days. Single viable intrauterine gestation. Cephalic position. Placenta: Posteriorplacenta grade 1. There is an average amount of fluid. The cervix appears satisfactory. Closed and measuring 3.5 cm in length. Complete survey performed and was unremarkable on the submitted images as in PACS. No discrete anomalies identified on survey imaging by technologist. Active fetus. Three-vessel cord with satisfactory umbilical cord insertion. 4- chamber heart noted. Situs, aortic arch, LVOT, RVOT, three-vessel view appear normal. Survey of brain & ventricles Unremarkable. Cerebellum, thalamus, choroid plexus, cisterna magna appear normal. Face and neck survey unremarkable. Profile, nasion, lips and nose appeared normal. Diaphragm and chest views unremarkable. Abdomen: Both kidneys noted and unremarkable. Stomach and bladder noted and satisfactory. Spine: Survey of the spine satisfactory with no anomalies identified nor imaged. Cervical, thoracic, lower spine appear normal. Both arms and legs noted. Amniotic Fluid: Adequate. Measurements: Average ultrasound age 20weeks 1day. Estimated due date by ultrasound age 1003/07/2024. Estimated weight 343g BPD = 19weeks 5days HC = 19weeks 4days AC = 20weeks 4days FL = 20weeks 3days Growth Percentile= 70 Heart Rate = 144bpm Cerebellum = 19weeks 3days Humerus = 21weeks HC/AC is 1.1 FL/BPD is 0.73 FL/AC is 0.22 IMPRESSION: 1. Viable fetus in the cephalic presentation with a posterior placenta grade 1. 2. The fluid is within normal limits. 3. Anatomical scan was normal. Due to position the profile was not visualized well. The cardiac scan was not visualized well. Suggest repeat ultrasound in 2-4 weeks. 4. biometry is consistent with the dates. Dictated by: Brodie Ellis MD 10/20/2023 16:16 Brodie Ellis MD in [place] 10/20/2023 16:16
== END 2023-10-20 23:59 | disposition home or self-care (01) ==
LOC: RAD 12:52
PROVIDERS: PCP Student in an Organized Health Care Education/Training Program; Visit Provider Obstetrics & Gynecology
DX: Z36.89 Encounter for other specified antenatal screening (principal); Z3A.20 20 weeks gestation of pregnancy
CPT/HCPCS: 76811

== ENCOUNTER 2023-10-20 13:36 | Outpatient (POV) | payer BC, SELFPAY | END 2023-10-20 23:59 | disposition home or self-care (01) | LOC: SC 13:37 | PROVIDERS: PCP Student in an Organized Health Care Education/Training Program; Visit Provider Specialist/Technologist | DX: Z00.00 Encounter for general adult medical examination without abnormal findings (principal) ==

== ENCOUNTER 2023-11-03 10:14 | Outpatient (CLI) | payer BC, SELFPAY ==
--- NOTE | 2023-11-03 10:19 | US_ITS ---
PROCEDURE: US OB FOLLOW UP CLINICAL INDICATION: follow-up cardiac views in 2 weeks COMPARISON: No exams were available for comparison FINDINGS: Transabdominal sonographic images of the pelvis were obtained. The following parameters are obtained: From her established due date she is 21weeks 6days Viable fetus in the cephalic presentation with a posterior placenta grade 1. The cervix measures 3.2 cm. heart rate: 152bpm bpm. Amniotic fluid appears normal. No obvious anomalies evident. profile seen, nasion, stomach, bladder, kidneys, three-vessel cord appear normal. Cardiac scan reveals normal LVOT, three-vessel view, four-chamber view, RVOT, Cervical, thoracic and lower spine appear normal. IMPRESSION: 1. Viable fetus in the cephalic presentation with a posterior placenta grade 1. 2. The fluid is within normal limits. 3. Scan continues to be difficult but cardiac views and spinal views appear normal. 4. The rest of the limited anatomical scan appear normal. 5. At the start of the exam there was a heart arrhythmia and would suggest follow-up. Dictated by: Brodie Ellis MD 11/03/2023 16:26 Brodie Ellis MD in [place] 11/03/2023 16:26
== END 2023-11-03 23:59 | disposition home or self-care (01) ==
LOC: RAD 10:16
PROVIDERS: PCP Student in an Organized Health Care Education/Training Program; Visit Provider Obstetrics & Gynecology
DX: Z36.2 Encounter for other antenatal screening follow-up (principal); Z3A.21 21 weeks gestation of pregnancy
CPT/HCPCS: 76816

== ENCOUNTER 2023-12-14 08:32 | Outpatient (CLI) | payer BC, SELFPAY ==
[2023-12-14 09:06] LABS: Basophils # 0.1 K/mm3 (0-0.2); Basophils % 0.7 % (0.1-2.0); Eosinophils # 0.1 K/mm3 (0.0-0.4); Eosinophils % 1.4 % (0.1-12.0); Hematocrit 37.2 % (37.0-47.0); Hemoglobin 12.1 g/dL (12.2-16.2); Lymphocytes # 2.6 K/mm3 (0.7-4.5); Mean Corpuscular HGB Conc 32.6 g/dL (31.8-35.4); Mean Corpuscular Hemoglobin 27.7 pg (27.0-31.2); Mean Corpuscular Volume 84.8 fl (81-99); Mean Platelet Volume 8.3 fl (7.4-10.4); Monocytes # 0.4 K/mm3 (0.1-1.0); Monocytes % 3.6 % (1.7-9.3); Neutrophils # 6.8 K/mm3 (1.8-7.8); Neutrophils % 68.3 % (37.0-80.0); Platelet Count 412 K/mm3 (142-424); Red Blood Count 4.39 M/mm3 (4.20-5.40); Red Cell Distribution Width 14.9 % (11.5-17.5); White Blood Count 9.9 K/mm3 (4.8-10.8)
[2023-12-14 09:23] LABS: Glucose,Fasting 113 mg/dl (74-100)
[2023-12-14 11:06] LABS: Glucose 1 Hour 145 mg/dL (74-100)
== END 2023-12-14 23:59 | disposition home or self-care (01) ==
LOC: LAB 08:33
PROVIDERS: PCP Student in an Organized Health Care Education/Training Program; Visit Provider Obstetrics & Gynecology
DX: Z34.90 Encounter for supervision of normal pregnancy, unspecified, unspecified trimester (principal)
CPT/HCPCS: 36415; 82951; 85025

== ENCOUNTER 2023-12-16 08:27 | Outpatient (CLI) | payer BC, SELFPAY ==
[2023-12-16 09:55] LABS: Glucose,Fasting 106 mg/dl (74-100)
[2023-12-16 11:09] LABS: Glucose 1 Hour 175 mg/dL (74-100)
[2023-12-16 11:23] LABS: Glucose 2 Hour 118 mg/dL (74-100)
[2023-12-16 12:25] LABS: Glucose 3 Hour 66 mg/dL (74-100)
== END 2023-12-16 23:59 | disposition home or self-care (01) ==
LOC: LAB 08:28
PROVIDERS: PCP Student in an Organized Health Care Education/Training Program; Visit Provider Obstetrics & Gynecology
DX: E74.39 Other disorders of intestinal carbohydrate absorption (principal)
CPT/HCPCS: 36415; 82951

== ENCOUNTER 2024-02-02 15:07 | Outpatient (CLI) | payer BC, SELFPAY ==
[2024-02-02 15:20] VITALS: BMI 52.9
[2024-02-02 15:51] LABS: Microscopic, Urine URINE MICROSCOPIC (MICROSCOPIC)
[2024-02-02 15:56] LABS: Appearance,Urine CLEAR (Clear); Bilirubin,Urine Negative (Negative); Blood, Urine Negative (Negative); Color,Urine YELLOW (Yellow); Glucose,Urine (UA) Negative (Negative); Ketones,Urine Negative (Negative); Leukocyte Esterase,Urine 1+ (Negative); Nitrate,Urine Negative (Negative); Protein,Urine Negative (Negative); Specific Gravity, Urine 1.015 (1.005-1.030); Urobilinogen,Urine 0.2 EU/dl (0.2)
[2024-02-02 16:12] LABS: Amphetamine/Metha Screen,Urine Negative ng/ml (<1000)
[2024-02-02 16:13] LABS: Barbiturates Screen,Urine Negative ng/ml (<200); Benzodiazepines Screen,Urine Negative ng/ml (<200)
[2024-02-02 16:14] LABS: Bacteria,Urine Trace /lpf; Cannabinoid Screen,Urine Negative ng/ml (<50); WBC,Urine Occasional #/hpf (0-3)
[2024-02-02 16:15] LABS: Cocaine Screen,Urine Negative ng/ml (<300); Methadone Screen,Urine Negative ng/ml (<300)
[2024-02-02 16:16] VITALS: BP 139/69; PULSE 105; RESP 20; TEMP 36.8; O2SAT 97; BMI 52.9
[2024-02-02 16:16] LABS: Opiate Screen,Urine Negative ng/ml (<300); Phencyclidine Screen,Urine Negative ng/ml (<25)
== END 2024-02-02 16:26 | disposition home or self-care (01) ==
LOC: OBOUT 15:09 → OB 15:10
PROVIDERS: PCP Student in an Organized Health Care Education/Training Program; Visit Provider Obstetrics & Gynecology
DX: O47.03 False labor before 37 completed weeks of gestation, third trimester (principal); Z3A.34 34 weeks gestation of pregnancy
CPT/HCPCS: 80307; 81001; 87086; G0463

== ENCOUNTER 2024-02-03 14:00 | Outpatient (CLI) | payer BC, SELFPAY ==
--- NOTE | 2024-02-03 14:04 | US_ITS ---
PROCEDURE: US OB BIOPHYSICAL PROFILE CLINICAL INDICATION: Hypertension in COMPARISON: US US OB TRANSVAGINAL from 07/14/2023 US US OB /MATERNAL DETAIL from 10/20/2023 US US OB FOLLOW UP from 11/03/2023 FINDINGS: Transabdominal sonographic images of the uterus were obtained. From her established due date she is 35weeks 0 days. Difficult examination secondary to maternal body habitus. The following parameters are obtained: Viable Fetus in the cephalic presentation with a fundal placenta grade 2. The cervix measures 4.2 cm. Measurements: heart Rate = 133bpm Amniotic fluid index: 14.55cm, MVP 4.3 cm Qualitative AFV:2 Breathing movements: 2 Gross Body Movements: 2 Tone: 2 Biophysical profile score: 8 No obvious anomalies evident.Kidneys, stomach, bladder, four-chamber heart, three-vessel cord appear normal. IMPRESSION: 1. Viable fetus in the cephalic presentation with a fundal placenta grade 2. Difficult examination. 2. The fluid is within normal limits with an amniotic fluid index of 14.55 cm, MVP 4.3 cm. 3. Biophysical profile is 8/8 with good breathing movement and movement seen. 4. Limited anatomical scan appears normal. Dictated by: Brodie Ellis MD 02/04/2024 08:31 Brodie Ellis MD in [place] 02/04/2024 08:31
== END 2024-02-03 23:59 | disposition home or self-care (01) ==
LOC: RAD 14:01
PROVIDERS: PCP Student in an Organized Health Care Education/Training Program; Visit Provider Obstetrics & Gynecology
DX: O16.3 Unspecified maternal hypertension, third trimester (principal); Z3A.35 35 weeks gestation of pregnancy
CPT/HCPCS: 76819

== ENCOUNTER 2024-02-04 15:30 | Outpatient (CLI) | payer BC, SELFPAY ==
[2024-02-04 15:46] LABS: Basophils # 0.1 K/mm3 (0-0.2); Basophils % 0.5 % (0.1-2.0); Eosinophils # 0.1 K/mm3 (0.0-0.4); Eosinophils % 1.2 % (0.1-12.0); Lymphocytes # 2.5 K/mm3 (0.7-4.5); Lymphocytes % 26.5 % (10-50); Mean Corpuscular HGB Conc 32.3 g/dL (31.8-35.4); Mean Corpuscular Hemoglobin 26.5 pg (27.0-31.2); Mean Corpuscular Volume 82.1 fl (81-99); Mean Platelet Volume 8.6 fl (7.4-10.4); Monocytes # 0.5 K/mm3 (0.1-1.0); Monocytes % 4.8 % (1.7-9.3); Neutrophils # 6.4 K/mm3 (1.8-7.8); Platelet Count 435 K/mm3 (142-424); Red Blood Count 4.51 M/mm3 (4.20-5.40); White Blood Count 9.5 K/mm3 (4.8-10.8)
[2024-02-04 16:20] LABS: Alanine Aminotransferase 19 U/L (12-78); Albumin Level 3.2 g/dl (3.5-5.0); Alkaline Phosphatase 149 U/L (38-126); Anion Gap 8.2 mEq/L (5-15); Aspartate Amino Transferase 24 U/L (14-36); Bilirubin,Total 0.4 mg/dl (0.2-1.3); Blood Urea Nitrogen 7 mg/dl (7-17); Calcium 9.3 mg/dl (8.4-10.2); Carbon Dioxide 23 mmol/L (22.0-30.0); Chloride 106 mmol/L (98-107); Estimated Glomerular Filt Rate 153 ml/min (>60); GFR (African American) 185 ML/MIN (>60); Globulin 3.1 g/dL (1.3-3.2); Glucose 100 mg/dl (74-100); Lactate Dehydrogenase 178 U/L (313-618); Potassium 4.2 mmoL/L (3.5-5.1); Sodium 133 mmol/L (136-145); Total Protein,Serum 6.3 g/dl (6.3-8.2); Uric Acid 3.2 mg/dl (2.5-6.2)
[2024-02-04 18:24] LABS: Total Volume,Urine 2085 mL (600-1600)
[2024-02-04 18:25] LABS: Total Protein 24 Hour,Urine 104 mg/24 hr (40-90); Total Protein,Urine Random < 5.0 mg/dL (0.0-12.0)
== END 2024-02-04 23:59 | disposition home or self-care (01) ==
LOC: LAB 15:31
PROVIDERS: PCP Student in an Organized Health Care Education/Training Program; Visit Provider Obstetrics & Gynecology
DX: Z34.90 Encounter for supervision of normal pregnancy, unspecified, unspecified trimester (principal)
CPT/HCPCS: 36415; 80053; 83615; 84155; 84550; 85025

== ENCOUNTER 2024-02-09 10:57 | Outpatient (CLI) | payer BC, SELFPAY | END 2024-02-09 23:59 | disposition home or self-care (01) | LOC: LAB.DROPOF 02-10 10:57 | PROVIDERS: PCP Obstetrics & Gynecology; Visit Provider Obstetrics & Gynecology | DX: Z34.90 Encounter for supervision of normal pregnancy, unspecified, unspecified trimester (principal) | CPT/HCPCS: 86403; 87086 ==

== ENCOUNTER 2024-02-12 09:34 | Outpatient (CLI) | payer BC, SELFPAY ==
--- NOTE | 2024-02-12 09:35 | US_ITS ---
PROCEDURE: US OB BIOPHYSICAL PROFILE CLINICAL INDICATION: Hypertension in COMPARISON: US US OB <= 14 WEEKS FETUS from 07/28/2023 US US OB /MATERNAL DETAIL from 10/20/2023 US OB FOLLOW UP from 11/03/2023 US OB BIOPHYSICAL PROFILE from 02/03/2024 FINDINGS: Transabdominal sonographic images of the uterus were obtained. From her established due date she is 36weeks 2days. The following parameters are obtained: Viable Fetus in the cephalic presentation with a posterior placenta grade 2. Cervix measures 3.3 cm. Measurements: heart Rate = 128bpm Amniotic fluid index: 8.48cm, MVP 3.42 cm. Qualitative AFV:2 Breathing movements: 2 Gross Body Movements: 2 Tone: 2 Biophysical profile score: 8 No obvious anomalies evident.Kidneys, profile, diaphragm, bladder, four-chamber heart, three-vessel cord appear normal. There is mild unilateral renal pelvis dilation measuring 7.6 mm. IMPRESSION: 1. Viable fetus in the cephalic presentation with a posterior placenta grade 2. 2. The fluid is within normal limits with an amniotic fluid index 8.48 cm, MVP 3.42 cm. 3. Biophysical profile is 8/8 with good breathing movement and movement seen. 4. Limited anatomical scan appears normal. Difficult exam secondary to maternal obesity. 5. There is unilateral renal pelvis dilation measuring 7.6 mm. Suggest truck dispatcher follows up post delivery. Dictated by: Brodie Ellis MD 02/12/2024 10:21 Brodie Ellis MD in [place] 02/12/2024 10:21
== END 2024-02-12 23:59 | disposition home or self-care (01) ==
LOC: RAD 09:35
PROVIDERS: PCP Student in an Organized Health Care Education/Training Program; Visit Provider Obstetrics & Gynecology
DX: O16.3 Unspecified maternal hypertension, third trimester (principal); Z3A.36 36 weeks gestation of pregnancy
CPT/HCPCS: 76819

== ENCOUNTER 2024-02-16 13:57 | Outpatient (CLI) | payer BC, SELFPAY ==
[2024-02-16 14:36] LABS: Basophils % 0.5 % (0.1-2.0); Eosinophils # 0.1 K/mm3 (0.0-0.4); Eosinophils % 0.9 % (0.1-12.0); Hematocrit 35.4 % (37.0-47.0); Hemoglobin 11.8 g/dL (12.2-16.2); Lymphocytes % 29.6 % (10-50); Mean Corpuscular HGB Conc 33.3 g/dL (31.8-35.4); Mean Corpuscular Hemoglobin 27.4 pg (27.0-31.2); Mean Corpuscular Volume 82.4 fl (81-99); Mean Platelet Volume 8.4 fl (7.4-10.4); Monocytes # 0.3 K/mm3 (0.1-1.0); Monocytes % 4.6 % (1.7-9.3); Neutrophils # 4.4 K/mm3 (1.8-7.8); Neutrophils % 64.3 % (37.0-80.0); Platelet Count 374 K/mm3 (142-424); Red Blood Count 4.29 M/mm3 (4.20-5.40); White Blood Count 6.9 K/mm3 (4.8-10.8)
[2024-02-16 14:50] LABS: Creatinine,Urine Random 71 mg/dL (Not Estab.); Total Protein,Urine Random < 5.0 mg/dL (0.0-12.0)
[2024-02-16 15:06] LABS: Alanine Aminotransferase 17 U/L (12-78); Albumin Level 3.4 g/dl (3.5-5.0); Albumin/Globulin Ratio 1.2 (1.1-1.8); Alkaline Phosphatase 174 U/L (38-126); Anion Gap 9.1 mEq/L (5-15); Aspartate Amino Transferase 23 U/L (14-36); Bilirubin,Total 0.4 mg/dl (0.2-1.3); Blood Urea Nitrogen 8 mg/dl (7-17); Calcium 9.2 mg/dl (8.4-10.2); Carbon Dioxide 22 mmol/L (22.0-30.0); Chloride 105 mmol/L (98-107); Estimated Glomerular Filt Rate 153 ml/min (>60); GFR (African American) 185 ML/MIN (>60); Globulin 2.8 g/dL (1.3-3.2); Glucose 85 mg/dl (74-100); Lactate Dehydrogenase 181 U/L (313-618); Potassium 4.1 mmoL/L (3.5-5.1); Sodium 132 mmol/L (136-145); Total Protein,Serum 6.2 g/dl (6.3-8.2); Uric Acid 3.8 mg/dl (2.5-6.2)
== END 2024-02-16 23:59 | disposition home or self-care (01) ==
LOC: LAB 13:58
PROVIDERS: PCP Student in an Organized Health Care Education/Training Program; Visit Provider Obstetrics & Gynecology
DX: O16.9 Unspecified maternal hypertension, unspecified trimester (principal)
CPT/HCPCS: 36415; 80053; 82570; 83615; 84156; 84550; 85025

== ENCOUNTER 2024-02-19 12:50 | Outpatient (CLI) | payer BC, SELFPAY ==
--- NOTE | 2024-02-19 12:50 | US_ITS ---
PROCEDURE: US OB BIOPHYSICAL PROFILE CLINICAL INDICATION: Hypertension in COMPARISON: US US OB <= 14 WEEKS FETUS from 07/28/2023 US US OB /MATERNAL DETAIL from 10/20/2023 US OB FOLLOW UP from 11/03/2023 US OB BIOPHYSICAL PROFILE from 02/03/2024 US OB BIOPHYSICAL PROFILE from 02/12/2024 FINDINGS: Transabdominal sonographic images of the uterus were obtained. From her established due date she is 37weeks 2days. The following parameters are obtained: Viable Fetus in the cephalic presentation with a posterior/lateral placenta grade 2. Cervix measures 3.94 cm. Measurements: heart Rate = 133bpm Amniotic fluid index: 9.93cm, MVP 4.75 cm. Qualitative AFV:2 Breathing movements: 2 Gross Body Movements: 2 Tone: 2 Biophysical profile score: 8 No obvious anomalies evident.Kidneys, bladder, three-vessel cord appear normal. There is unilateral renal pelvis dilation measuring 6.3 mm. Slightly less than last exam. IMPRESSION: 1. Viable fetus in the cephalic presentation with a posterolateral placenta grade 2. 2. The fluid is within normal limits with an amniotic fluid index of 9.93 cm, MVP 4.75 cm. 3. Difficult scan secondary to maternal obesity. 4. Biophysical profile is 8/8 with good breathing movement and movement seen. 5. Limited anatomical scan appears normal. 6. There continues to be unilateral renal pelvis dilation measuring 6.3 mm today, slightly less than previous examination. Follow-up post delivery by cooker chip is recommended. Dictated by: Brodie Ellis MD 02/20/2024 07:20 Brodie Ellis MD in [place] 02/20/2024 07:20
== END 2024-02-19 23:59 | disposition home or self-care (01) ==
PROVIDERS: PCP Student in an Organized Health Care Education/Training Program; Visit Provider Obstetrics & Gynecology
DX: O16.3 Unspecified maternal hypertension, third trimester (principal); Z3A.37 37 weeks gestation of pregnancy
CPT/HCPCS: 76819

== ENCOUNTER 2024-02-26 13:42 | Outpatient (CLI) | payer BC, SELFPAY ==
--- NOTE | 2024-02-26 13:42 | US_ITS ---
PROCEDURE: US OB BIOPHYSICAL PROFILE CLINICAL INDICATION: Hypertention in COMPARISON: US US OB <= 14 WEEKS FETUS from 07/28/2023 US US OB /MATERNAL DETAIL from 10/20/2023 US OB FOLLOW UP from 11/03/2023 US OB BIOPHYSICAL PROFILE from 02/03/2024 US OB BIOPHYSICAL PROFILE from 02/12/2024 US OB BIOPHYSICAL PROFILE from 02/19/2024 FINDINGS: Transabdominal sonographic images of the uterus were obtained. From her established due date she is 38weeks 2days. The following parameters are obtained: Viable Fetus in the cephalic presentation with a posterior laterally wrapped placenta grade 2-3. Cervix measures 3.9 cm. Measurements: heart Rate = 121bpm Amniotic fluid index: 9.69cm, MVP 3.73 cm. Qualitative AFV:2 Breathing movements: 2 Gross Body Movements: 2 Tone: 2 Biophysical profile score: 8 No obvious anomalies evident.Kidneys, bladder, four-chamber heart three-vessel cord appear normal. There is bilateral renal pelvis dilation measuring 8.3 mm and 7.2 mm. IMPRESSION: 1. Viable fetus in the cephalic presentation with a posterior laterally wrapped placenta grade 2-3. 2. The fluid is within normal limits with an amniotic fluid index 9.69 cm, MVP 3.73 cm. 3. Biophysical profile is 8/8 with good breathing movement and movement seen. 4. Limited anatomical scan appears normal. 5. There continues to be bilateral renal pelvis dilation measuring 8.3 mm and 7.2 mm. Suggest molding cutter follows up . Dictated by: Brodie Ellis MD 02/27/2024 06:22 Brodie Ellis MD in [place] 02/27/2024 06:22
== END 2024-02-26 23:59 | disposition home or self-care (01) ==
PROVIDERS: PCP Student in an Organized Health Care Education/Training Program; Visit Provider Obstetrics & Gynecology
DX: O16.3 Unspecified maternal hypertension, third trimester (principal); O34.219 Maternal care for unspecified type scar from previous cesarean delivery; Z3A.38 38 weeks gestation of pregnancy
CPT/HCPCS: 76819

== ENCOUNTER 2024-03-02 05:00 | Inpatient (IN) | payer BC, SELFPAY ==
[2024-03-02] VITALS (8 sets, daily range): BP systolic 108–128; BP diastolic 52–70; PULSE 79–96; RESP 16–18; TEMP 36.3–37; O2SAT 98–100; BMI 53.7; BMI 53.8
[2024-03-02 06:06] LABS: Microscopic, Urine URINE MICROSCOPIC (MICROSCOPIC)
[2024-03-02 06:09] LABS: Basophils # 0.1 K/mm3 (0-0.2); Basophils % 0.9 % (0.1-2.0); Eosinophils # 0.1 K/mm3 (0.0-0.4); Eosinophils % 0.9 % (0.1-12.0); Hematocrit 34.5 % (37.0-47.0); Hemoglobin 11.7 g/dL (12.2-16.2); Lymphocytes # 2.9 K/mm3 (0.7-4.5); Lymphocytes % 26.4 % (10-50); Mean Corpuscular HGB Conc 33.8 g/dL (31.8-35.4); Mean Corpuscular Hemoglobin 26.2 pg (27.0-31.2); Mean Corpuscular Volume 77.6 fl (81-99); Mean Platelet Volume 8.8 fl (7.4-10.4); Monocytes # 0.6 K/mm3 (0.1-1.0); Monocytes % 5.5 % (1.7-9.3); Neutrophils # 7.2 K/mm3 (1.8-7.8); Neutrophils % 66.4 % (37.0-80.0); Platelet Count 444 K/mm3 (142-424); Red Blood Count 4.45 M/mm3 (4.20-5.40); Red Cell Distribution Width 15.3 % (11.5-17.5); White Blood Count 10.9 K/mm3 (4.8-10.8)
[2024-03-02 06:10] LABS: Bilirubin,Urine Negative (Negative); Blood, Urine 1+ (Negative); Color,Urine YELLOW (Yellow); Glucose,Urine (UA) Negative (Negative); Ketones,Urine TRACE (Negative); Leukocyte Esterase,Urine 2+ (Negative); Nitrate,Urine Negative (Negative); Protein,Urine Negative (Negative); Specific Gravity, Urine 1.025 (1.005-1.030); Urobilinogen,Urine 0.2 EU/dl (0.2)
[2024-03-02 06:12] LABS: Appearance,Urine Cloudy (Clear)
[2024-03-02 06:14] LABS: Chloride 108 mmol/L (98-107)
[2024-03-02 06:15] LABS: Potassium 3.7 mmoL/L (3.5-5.1); Sodium 134 mmol/L (136-145)
[2024-03-02 06:18] LABS: Anion Gap 9.7 mEq/L (5-15); Blood Urea Nitrogen 6 mg/dl (7-17); Carbon Dioxide 20 mmol/L (22.0-30.0); Creatinine Clearance Estimated 151 mL/min (50-200); Estimated Glomerular Filt Rate 153 ml/min (>60); GFR (African American) 185 ML/MIN (>60); Glucose 110 mg/dl (74-100)
[2024-03-02] MEDS: LACTATED RINGERS 1000ML 1,000 ML 999 ML IV (06:21)
[2024-03-02 06:23] LABS: Barbiturates Screen,Urine Negative ng/ml (<200)
[2024-03-02 06:24] LABS: Amphetamine/Metha Screen,Urine Negative ng/ml (<1000); Benzodiazepines Screen,Urine Negative ng/ml (<200)
[2024-03-02 06:25] LABS: Cannabinoid Screen,Urine Negative ng/ml (<50); Cocaine Screen,Urine Negative ng/ml (<300)
[2024-03-02 06:26] LABS: Methadone Screen,Urine Negative ng/ml (<300)
[2024-03-02 06:27] LABS: Opiate Screen,Urine Negative ng/ml (<300); Phencyclidine Screen,Urine Negative ng/ml (<25)
[2024-03-02 06:39] LABS: Bacteria,Urine 3+ /lpf; Squamous Epithelial Cell,Urine 20-50 #/hpf (0-5)
--- NOTE | 2024-03-02 07:32 | P.CONPHA_ITS ---
Pharmacy Intervention Comments: MEDICATION RECONCILIATION COMPLETED ON PATIENT USING EXTERNAL FILL HISTORY FROM PHARMACY AND LIST FROM HATCHERY SUPERVISOR OFFICE. -CARMELO SRINIVASAND
--- NOTE | 2024-03-02 07:32 | HMH.PHAINT1 ---
Pharmacy Intervention Comments: MEDICATION RECONCILIATION COMPLETED ON PATIENT USING EXTERNAL FILL HISTORY FROM PHARMACY AND LIST FROM BELLY DUMP DRIVER OFFICE. -CARMELO SRINIVASAND
--- NOTE | 2024-03-02 07:42 | EXP.HP ---
History of Present Illness *Admission Date: 03/02/24 *Reason for visit:: Section *History of present illness: Jemma Rm is a 23-year-old at 39 weeks and 0 days gestation who presented to labor and delivery for regular painful contractions. Her has been complicated by chronic hypertension, hyperlipidemia, obesity and previous delivery. On presentation patient endorsed good movement and denies any leakage of fluid or vaginal bleeding. A+, antibody negative, rubella immune, hepatitis B negative, hepatitis C negative, RPR negative, HIV negative 1 hour GTT: 145 3 hour GTT: 106/175/118/66 Negative genetic screening conditions [facility] Disclaimer: The information contained in this section may have been updated after the patient was seen, as this information can be updated by other users. Medical History Gestational hypertension Maternal obesity affecting , antepartum BMI > 50.0 Chronic eustachian tube dysfunction Left serous otitis media Recurrent sinusitis Acute viral syndrome Sinusitis Hypertension affecting Hyperlipidemia Surgical History H/O wisdom tooth extraction History of tonsillectomy History of section Family History Other No significant family history Social History Smoking Status: Never smoker alcohol intake: never substance use type: denies use current occupational status: employed Travel in the last 8 weeks: None Other Medical History Have you received the Flu Vaccine for this season: No Have you received the Pneumonia Vaccine: No Review of Systems Review of Systems Review of systems (narrative): Review of Systems Constitutional: Denies fever, chills, and sweats Eyes: Denies vision change/ pain Respiratory: Denies cough and shortness of breath Cardiovascular: Denies chest pain and lightheadedness Gastrointestinal: Denies abdominal pain. Denies nausea, vomiting. Genitourinary: Denies dysuria and incontinence Musculoskeletal: Denies shoulder pain and back pain Neurological: Denies change in speech or headaches Meds Home Medications and Allergies Home Medications ?Medication ?Instructions ?Recorded ?Confirmed ?Type vits no.126-ferrous fum 1 tab PO DAILY 08/06/23 03/02/24 History 28 mg iron-folic acid 800 mcg tablet (Classic ) aspirin 81 mg tablet,delayed 81 mg PO DAILY 10/20/23 03/02/24 History release (Adult Low Dose Aspirin) sennosides 8.6 mg tablet (Natural 8.6 mg PO BID #60 tabs 10/20/23 03/02/24 Rx Senna Laxative) loratadine 10 mg tablet 10 mg PO DAILY 01/12/24 03/02/24 History labetalol 200 mg tablet 200 mg PO BID #60 tabs 02/16/24 03/02/24 Rx acetaminophen 325 mg capsule 325 mg PO QIDP PRN Mild Pain 03/02/24 03/02/24 History (Tylenol) (Scale Score 1-4) ondansetron HCl 4 mg tablet 4 mg PO Q8HP PRN Nausea And 03/02/24 03/02/24 History Vomiting New Prescriptions to Start Prescriptions: Allergies Allergy/AdvReac Type Severity Reaction Status Date / Time No Known Allergies Allergy Verified 02/19/24 13:35 Exam Data for Last 24 hours Vital signs and Labs for Last 24 Hours: Temp Pulse Resp BP Pulse Ox O2 Del Method 98.6 F 92 H 18 110/66 99 Room Air 03/02/24 05:43 03/02/24 05:43 03/02/24 05:43 03/02/24 05:43 03/02/24 05:43 03/02/24 05:43 Laboratory Results - last 24 hr 03/02/24 05:30: WBC 10.9 H, RBC 4.45, Hgb 11.7 L, Hct 34.5 L, MCV 77.6 L, MCH 26.2 L, MCHC 33.8, RDW 15.3, Plt Count 444 H, MPV 8.8, Neut % (Auto) 66.4, Lymph % (Auto) 26.4, [place] % (Auto) 5.5, Eos % (Auto) 0.9, Baso % (Auto) 0.9, Neut # (Auto) 7.2, Lymph # (Auto) 2.9, [place] # (Auto) 0.6, Eos # (Auto) 0.1, Baso # (Auto) 0.1, Sodium 134 L, Potassium 3.7, Chloride 108 H, Carbon Dioxide 20 L, Anion Gap 9.7, BUN 6 L, Creatinine 0.50 L, Estimated Creat Clear 151, Estimated GFR 153, Est GFR ( Amer) 185, Glucose 110 H, Calcium 9.0, Urine Color Yellow, Urine Appearance Cloudy, Urine pH 6.0, Ur Specific [place] 1.025, Urine Protein Negative, Urine Glucose (UA) Negative, Urine Ketones Trace, Urine Blood 1+ A, Urine Nitrate Negative, Urine Bilirubin Negative, Urine Urobilinogen 0.2, Ur Leukocyte Esterase 2+ A, Urine RBC 5-10, Urine WBC 10-20, Ur Squamous Epith Cells 20-50, Urine Bacteria 3+, Urine Opiates Screen Negative, Urine Methadone Screen Negative, Ur Barbituates Screen Negative, Ur Phencyclidine Scrn Negative, Ur Amphetamines Screen Negative, U Benzodiazepines Scrn Negative, Urine Cocaine Screen Negative, U Marijuana (THC) Screen Negative, Crossmatch (AHG) See Detail I & O for Last 24 hours: Intake & Output 02/28/24 02/29/24 03/01/24 03/02/24 23:59 23:59 23:59 23:59 Weight 322 lb 15.988 oz Narrative: General: patient is alert oriented in no acute distress and responds appropriately to questions. HEENT: NCAT, EOMI, moist mucous membranes, neck supple with full ROM Cardiovascular: RRR +S1/S2, no murmurs or rubs Pulmonary: Clear to auscultation bilaterally, nonlabored breathing, symmetric chest rise Abdominal: Gravid abdomen appropriate for gestation. No guarding, rebound, or tenderness noted. Extremities: trace edema, no tenderness or cyanosis noted Skin: Normal turgor, intact, warm. Negative for erythema, pallor, petechia, or lesions Neurologic: Negative for sensory or motor deficit Psychiatric: Normal affect, normal thought process, good judgment and insight, no depression or anxious mood appreciated. *Routine HEENT Exam Head: Present normocephalic and atraumatic Eye: Present EOMI, PERRL and normal accommodation; Absent conjunctival icterus, scleral injection, nystagmus or exophthalmos ENT: Present mucous membranes moist *Routine Respiratory Exam Respiratory: Present CTA bilaterally, normal respiratory effort, able to speak in complete sentences and symmetric chest movement; Absent accessory muscle use, decreased breath sounds, rales, respiratory distress, wheezes, distant breath sounds or diminished air movement *Routine Cardiovascular Exam Cardiovascular: Present RRR, Normal S1 and Normal S2; Absent murmur or gallop *Routine Abdominal Exam Abdominal: Present soft and normoactive bowel sounds; Absent tenderness, distended, rebound or guarding *Routine Rectal Exam Rectal:: deferred *Routine Genitalia Exam Genitalia:: normal female Assessment and Plan *Assessment and plan (1) Maternal obesity affecting , antepartum: Problem Comment: BMI > 50.0 Status: Acute Qualifiers: Obesity type affecting : unspecified obesity Qualified Code(s): O99.210 - Obesity complicating , unspecified trimester Category: Medical Code(s): O99.210 - Obesity complicating , unspecified trimester (2) Previous delivery affecting : Status: Acute Category: Surgical Code(s): O34.219 - Maternal care for unspecified type scar from previous delivery (3) Hypertension affecting : Status: Acute Category: Medical Code(s): O16.9 - Unspecified maternal hypertension, unspecified trimester (4) Hyperlipidemia: Status: Acute Category: Medical Code(s): E78.5 - Hyperlipidemia, unspecified Plan - Monitor vitals - Admit to L&D for scheduled delivery - External FHR and TOCO monitor - Blood type: A+ - Hemoglobin: 11.7, Plt: 444 - Plan for spinal anesthesia - Anticipate delivery of male #Chronic Hypertension -24-hour urine on July 30, 2023: 75 -DC ASA -Continue Labetalol 200mg BID #Obesity -BMI: 54. Complicates all aspect of care and surgery. Reviewed the risks benefits and alternatives to Repeat delivery. Patient continued to request delivery and not a trial of labor would not be an option after 2 previous deliveries. Discussed the risk of bleeding, infection injury to the surrounding structures. Patient consented to blood transfusion to medically necessary. Reviewed the rare risk of hysterectomy if bleeding is unable to be controlled. Discussed risk of infection, the patient has no allergies and will receive 3 g of Ancef preoperatively. Reviewed the risk of injury to surrounding structures including the bowel, bladder, reproductive organs, and neurovascular bundles. Patient voiced understanding. Discussed the increased risk with prior surgery and scarring. Patient and significant other voiced understanding desire to proceed
--- NOTE | 2024-03-02 07:57 | P.OP_ITS ---
Date of procedure: 03/02/24 Pre-op Diagnosis:: 1. 39 weeks 0 days gestation, [place] 2. Chronic hypertension 3. Previous delivery, desires repeat 4. Obesity 5. Hyperlipidemia Post-op Diagnosis:: 1. 39 weeks 0 days gestation, [place] 2. Chronic hypertension 3. Previous delivery, desires repeat 4. Obesity 5. Hyperlipidemia Procedure performed:: Repeat Delivery Surgeon:: Joyce Irizarry DO Clinical Physician Assistant(s):: Vinod Peters DO ENERGY CONSERVATION SPECIALIST:: Truman Velez and Mignon Stanford Anesthesia: spinal Estimated blood loss (mL): 500 Operative findings:: 1. Live viable male infant: undecided. Weight: 8pounds 3ounces. Apgars 9 and 9 at 1 and 5 minutes respectively 2. Normal-appearing fallopian tubes and ovaries bilaterally Operative note:: Medications: 3 g of Ancef Summary: Procedure explained in its entirety. The patient was counseled on the risks and benefits of section including bleeding, vascular injury, infection, and injury to the surrounding structures. Hemorrhage requiring life saving blood transfusion resulting in blood born viral infection or allergic reaction was explained and the patient consented to blood transfusion. Possible need for further operative measures prolonging recovery time and hospitalization reviewed to include hysterectomy. Procedure explained in its entirety and patient had no further questions. Consented to procedure. The patient was taken back to the operating room where adequate spinal anesthesia was obtained. Pneumatic compression stockings applied to lower extremities. Ancef 3g was given for infection prophylaxis. She was placed in the dorsal supine position Urinary catheter was placed and found to be draining clear urine. The patient was prepped and draped in sterile fashion. Anesthesia was tested and and found to be adequate. A Pfannenstiel skin incision was made with the scalpel. Subcutaneous bleeding vessels were cauterized with the bovie. The incision was taken down to the fascia with the bovie. The fascia was knicked in the midline and sharply extended laterally. The superior aspect of the fascia was grasped with Chet clamps and the rectus muscle was taken down sharply. The rectus muscle was sharply dissected from the midline with Mayos. This process was repeated inferiorly. The rectus muscles were in the midline, peritoneum was identified and entered bluntly. Neal O retractor was placed. A bladder flap was created with Metzenbaum scissors and Solomon Islander pickups. The lower uterine segment was easily identified, sharply incised, and entered bluntly with the surgeon's index finger. Incision was then extended in a superior and inferior fashion by blunt separation. Membranes were ruptured revealing clear fluid. The fetus was in cephalic presentation. The head was carefully elevated out of the pelvis. Fundal pressure was applied when head was brought into incision. The infants head was delivered without difficulty. The shoulder and body followed without complication. Delivery occurred at 0823. The mouth and nose were suctioned with a bulb. The umbilical cord was clamped and cut. was taken to warmer for evaluation by the paste up worker. Cord blood was collected. The placenta was delivered via fundal massage. IV Pitocin was initiated. Inside of the uterus was gently cleared of blood and clots with lap sponge. The hysterotomy was closed with 0 Vicryl in a running locked fashion. Second layer of 0 Vicryl was used to impede the hysterotomy for hemostasis. The lower uterine segment was visualized and noted to have a small amount of bleeding in the apex which was made hemostatic with the 0 Vicryl simple interrupted stitch. The ovaries and tubes were found to be normal. The posterior aspect of the uterus was cleared of blood clot with a damp lap sponge. The gutters were inspected bilaterally and cleared of blood and clots with lap sponges. The uterine incision was reinspected and hemostasis noted. Neal O retractor was removed. Surgicel powder was applied for an added layer of hemostatic prophylaxis over the hysterotomy. Officials used to retract the protruding omentum. The peritoneum was reapproximated using a 2-0 Monocryl in a nonlocked running fashion. The rectus muscles were reapproximated with 0 Vicryl in a horizontal mattress suture x 2. The remaining Surgicel powder was applied over the rectus muscles. Hemostasis noted. The fascia was closed in a running nonlocked fashion using 0 Vicryl x2 meeting right of midline. Fascia was noted as not having gaps or defects. The subcutaneous fat was closed with 2-0 Monocryl in 3 layers. Skin was closed with the INSORB suture in a subcuticular fashion. Patient tolerated the procedure well and all counts were correct x3, per nursing. Patient will receive tap blocks and then be transported to the OB PACU for recovery and bonding. Condition: stable Disposition: PACU Specimens:: 1. Live viable male 2. Placenta 3. Cord blood Complications:: None
--- NOTE | 2024-03-02 09:40 | P.PNANES_ITS ---
[facility] Disclaimer: The information contained in this section may have been updated after the patient was seen, as this information can be updated by other users. Medical History Gestational hypertension Maternal obesity affecting , antepartum BMI > 50.0 Chronic eustachian tube dysfunction Left serous otitis media Recurrent sinusitis Acute viral syndrome Sinusitis Hypertension affecting Hyperlipidemia Surgical History H/O wisdom tooth extraction History of tonsillectomy History of section Family History Other No significant family history Social History (Updated 03/02/24 @ 09:14 by Elizabeth Hong RN) Smoking Status: Never smoker alcohol intake: never substance use type: denies use current occupational status: employed Travel in the last 8 weeks: None [facility] Anesthesia Checklist Patient Identification Patient Identification: Arm Band, Family and Verbal (Name & ) Structural Data Admitted From: Inpatient ([id number]) Planned Operative Procedure/s: Repeat C-sxn Consent for Planned Operative Procedure(s) Verified: Yes Verified Documents: Surgical Consent and History and Physical NPO Status Verified Time NPO: 19:00 Chart Verification Results Verified: CBC, BMP and Chest Xray Additional verifications Patient : Yes Anesthesia Reactions: No Cardiovascular Assessment Heart Sounds: S1 & S2 Pulse Rhythm: Irregular Peripheral Edema: Yes (2+ JENNIFER LE) Airway Assessment Mallampati Score:: Class II C-Spine Mobility Assessed: Yes (FROM) TMJ Mobility Assessed: Yes Dentition: Good Dentition (Nothing loose per pt.) Neurological Assessment Level of Consciousness: Awake, Alert, Appropriate and Follows Commands Hx Seizures: No Numbness or tingling in extremities: No Anesthesia Plan Anesthesia Risk discussed: Yes Anesthesia Plan: Verified ASA Class: III Anesthesia Type: Spinal (w/JENNIFER TAP blocks)
--- NOTE | 2024-03-02 09:42 | P.PNANES_ITS ---
[facility] Anesthesia Record Part I Anesthesia Record I Intake, IV Amount: 1,750 Hydration: Adequate Estimated blood loss (mL): 500 Urine output (mL): 100 Blood Pressure: 108/52 SaO2: 99 Pulse Rate: 95 Airway Patency: Patent Respiratory Rate: 16 Temperature: 97.7 F Patient is:: Awake (Talking) and Stable Stable to PACU at:: 09:33
[2024-03-02] MEDS: OXYTOCIN/RINGERS LACTATE 30 UNITS/500 ML BAG 40 UNITS IV (10:06)
[2024-03-02] MEDS: CEFAZOLIN SODIUM 3 GM in 0.9 % SODIUM CHLORIDE 100 ML IV (11:13)
[2024-03-02 11:15] LABS: Microscopic,Cath URINE MICROSCOPIC (MICROSCOPIC)
[2024-03-02 11:16] LABS: Appearance,Urine/Cath CLEAR (Clear); Bilirubin,Cath Negative (Negative); Blood, Urine/Cath Negative (Negative); Color,Urine/Cath YELLOW (Yellow); Glucose,Urine/Cath (UA) Negative (Negative); Ketones,Urine/Cath Negative (Negative); Leukocyte Esterase,Cath Negative (Negative); Nitrate,Cath Negative (Negative); PH,Urine/Cath 6.5 (5.0-8.5); Protein,Urine/Cath Negative (Negative); Specific Gravity, Urine/Cath 1.015 (1.005-1.030); Urobilinogen,Cath 0.2 EU/dl (0.2)
[2024-03-02 11:27] LABS: Squamous Epithelial Ur./Cath Occasional #/hpf (0-5)
[2024-03-02] MEDS: KETOROLAC 30MG/ML VIAL 30 MG IV ×2 (12:04→20:35)
[2024-03-02] MEDS: ACETAMINOPHEN 500MG TAB 1000 MG PO ×2 (12:05→20:35)
[2024-03-02] MEDS: LORATADINE 10MG TABLET 10 MG PO (12:05)
--- NOTE | 2024-03-02 13:19 | EXP.ANES.II ---
[facility] Anesthesia Record Part II Anesthesia Record Part II Discharge Time: 09:58 Destination: Obstetric PACU nurse assessment reviewed?: Yes Patient Condition:: Good Anesthesia Complications:: None Swallowing reflex intact?: Yes Airway Patency: Patent Cyanosis?: No Blood Pressure: 117/61 SaO2: 100 Respiratory Rate: 18 Pulse Rate: 83 Temperature: 97.4 F Mental Status: Alert & Oriented Pain level:: 0 Nausea and/or vomitting:: None Intake, IV Amount: 1,750 Hydration: Adequate
[2024-03-02] MEDS: PRENATAL MULTIVITAMIN W/IRON 1 EACH PO (16:37)
[2024-03-02] MEDS: OXYCODONE 5MG IMMEDIATE RELEASE TABLET 5 MG PO ×2 (16:37→23:50)
[2024-03-02] MEDS: LANOLIN CREAM 40GM TP (20:34)
[2024-03-02] MEDS: SENNA 8.6MG TABLET 8.6 MG PO (20:35)
[2024-03-02] MEDS: LABETALOL 100MG TABLET 200 MG PO (20:35)
[2024-03-02] MEDS: PROMETHAZINE HCL 25MG/ML 1ML VIAL 12.5 MG IV (23:51)
[2024-03-03 06:41] LABS: Basophils % 0.3 % (0.1-2.0); Eosinophils % 0.4 % (0.1-12.0); Hemoglobin 10.2 g/dL (12.2-16.2); Lymphocytes # 2.6 K/mm3 (0.7-4.5); Lymphocytes % 27.1 % (10-50); Mean Corpuscular HGB Conc 32.9 g/dL (31.8-35.4); Mean Corpuscular Hemoglobin 26.2 pg (27.0-31.2); Mean Corpuscular Volume 79.5 fl (81-99); Mean Platelet Volume 8.5 fl (7.4-10.4); Monocytes # 0.6 K/mm3 (0.1-1.0); Monocytes % 6.5 % (1.7-9.3); Neutrophils # 6.4 K/mm3 (1.8-7.8); Neutrophils % 65.7 % (37.0-80.0); Platelet Count 342 K/mm3 (142-424); Red Cell Distribution Width 15.3 % (11.5-17.5); White Blood Count 9.8 K/mm3 (4.8-10.8)
[2024-03-03] MEDS: IBUPROFEN 400 MG TABLET 800 MG PO ×2 (07:24→16:14)
[2024-03-03] MEDS: OXYCODONE 5MG IMMEDIATE RELEASE TABLET 5 MG PO ×2 (07:24→20:46)
[2024-03-03] MEDS: ACETAMINOPHEN 500MG TAB 1000 MG PO ×3 (07:25→22:37)
[2024-03-03 12:16] LABS: Rapid Plasma Reagin Ab Titer Non Reactive titer (NonRea<1:1)
[2024-03-03] MEDS: LORATADINE 10MG TABLET 10 MG PO (16:14)
[2024-03-03] MEDS: PRENATAL MULTIVITAMIN W/IRON 1 EACH PO (16:14)
[2024-03-03] MEDS: SIMETHICONE 80MG CHEWABLE TABLET 160 MG PO (19:17)
[2024-03-03 20:42] VITALS: BP 133/73; PULSE 104; RESP 20; TEMP 36.6; O2SAT 99
[2024-03-03] MEDS: LABETALOL 100MG TABLET 200 MG PO (20:46)
[2024-03-03] MEDS: SENNA 8.6MG TABLET 8.6 MG PO (20:46)
--- NOTE | 2024-03-03 21:43 | EXP.PN ---
Subjective *Date: 03/03/24 *Time: 21:43 Interval history: POD#1 s/p Repeat CS. Doing well. Breast feeding male . amhulating, voiding and tolerating PO. Passing flatus. No concerns. pain well controlled Exam Data for Last 24 hours Vital signs and Labs for Last 24 Hours: Temp Pulse Resp BP Pulse Ox O2 Del Method 97.8 F 104 H 20 133/73 99 Room Air 03/03/24 20:42 03/03/24 20:42 03/03/24 20:42 03/03/24 20:42 03/03/24 20:42 03/03/24 20:42 Laboratory Results - last 24 hr 03/02/24 05:30: RPR Titer Non reactive 03/03/24 06:09: WBC 9.8, RBC 3.90 L, Hgb 10.2 L, Hct 31.0 L, MCV 79.5 L, MCH 26.2 L, MCHC 32.9, RDW 15.3, Plt Count 342, MPV 8.5, Neut % (Auto) 65.7, Lymph % (Auto) 27.1, [place] % (Auto) 6.5, Eos % (Auto) 0.4, Baso % (Auto) 0.3, Neut # (Auto) 6.4, Lymph # (Auto) 2.6, [place] # (Auto) 0.6, Eos # (Auto) 0.0, Baso # (Auto) 0.0 I & O for Last 24 hours: Intake & Output 02/29/24 03/01/24 03/02/24 03/03/24 23:59 23:59 23:59 23:59 Intake Total 3500 / 3500 Balance 3500 / 3500 Weight 322 lb 15.988 oz Narrative: General: patient is alert oriented in no acute distress and responds appropriately to questions. Appears to be in minimal pain. Sitting up in the chair and doing well HEENT: NCAT, EOMI, moist mucous membranes, neck supple with full ROM Cardiovascular: RRR +S1/S2, no murmurs or rubs Pulmonary: Clear to auscultation bilaterally, nonlabored breathing, symmetric chest rise Abdominal: Fundus below the umbilicus, firm, and tenderness appropriate for the period. Extremities: trace edema, no tenderness or cyanosis noted Skin: Normal turgor, intact, warm. Negative for erythema, pallor, petechia, or lesions. incision covered by steri strips. Pt has had a shower. no erythrema or drainage. no signs of infection Neurologic: Negative for sensory or motor deficit Psychiatric: Normal affect, normal thought process, good judgment and insight, no depression or anxious mood appreciated. Assessment and Plan *Assessment and plan (1) Maternal obesity affecting , antepartum: Problem Comment: BMI > 50.0 Status: Acute Qualifiers: Obesity type affecting : unspecified obesity Qualified Code(s): O99.210 - Obesity complicating , unspecified trimester Category: Medical Code(s): O99.210 - Obesity complicating , unspecified trimester (2) Gestational hypertension: Status: Acute Qualifiers: Trimester: third trimester Qualified Code(s): O13.3 - Gestational [-induced] hypertension without significant proteinuria, third trimester Category: Medical Code(s): O13.9 - Gestational [-induced] hypertension without significant proteinuria, unspecified trimester (3) Previous delivery affecting : Status: Acute Category: Surgical Code(s): O34.219 - Maternal care for unspecified type scar from previous delivery (4) delivery delivered: Status: Acute Category: Medical Code(s): O82 - Encounter for delivery without indication Plan cont ambulation pain control cardona with baby/ breast feed. anemia noted. Dc with PO Iron. pt asymptomatic Dc home tomorrow. gestational htn -BP well controlled -Cont meds at DC -DC ASA
[2024-03-04] MEDS: IBUPROFEN 400 MG TABLET 800 MG PO ×2 (00:36→09:00)
[2024-03-04 00:37] VITALS: BP 108/58; PULSE 92; O2SAT 97
[2024-03-04 00:54] VITALS: BP 119/57; PULSE 91
[2024-03-04 04:47] VITALS: BP 100/53; PULSE 82; RESP 21; TEMP 36.9; O2SAT 97
[2024-03-04] MEDS: ACETAMINOPHEN 500MG TAB 1000 MG PO ×2 (04:48→11:12)
[2024-03-04] MEDS: OXYCODONE 5MG IMMEDIATE RELEASE TABLET 5 MG PO (04:55)
--- NOTE | 2024-03-04 08:34 | EXP.DC.SUM ---
General Admission date:: 03/02/24 Discharge date: 03/04/24 HPI HPI HPI: Jemma Rm is a 23-year-old at 39 weeks and 0 days gestation who presented to labor and delivery for regular painful contractions. Her has been complicated by chronic hypertension, hyperlipidemia, obesity and previous delivery. On presentation patient endorsed good movement and denies any leakage of fluid or vaginal bleeding. A+, antibody negative, rubella immune, hepatitis B negative, hepatitis C negative, RPR negative, HIV negative 1 hour GTT: 145 3 hour GTT: 106/175/118/66 Negative genetic screening conditions Hospital Course Hospital Course Hospital Course: Sariah is a 23-year-old G2, P2 day #2 from a repeat delivery. She delivered a live viable male infant on 03/02/2024 at 08 23. Infant weighed 8 pounds and 3 ounces. Her was complicated by chronic versus gestational hypertension. She has been well-controlled throughout with 200 mg of labetalol twice daily. she has been hypotensive and her labetalol was required to be held. She will be discharged without taking labetalol with strict blood pressure checks and return to office/emergency department/when to call instructions. The patient scored a 14 on her ED PS screening, reports that this is primarily anxiety over health voice will find and how she will manage to children when she is home. Reports that she is doing okay and declines medical intervention prior to discharge. Routine discharge instructions reviewed with patient in detail and she was understanding. All questions and concerns were addressed with patient satisfaction. She will have a short interval follow-up next week for blood pressure check and screening for anxiety. Exam Data for Last 24 hours Vital signs and Labs for Last 24 Hours: Temp Pulse Resp BP Pulse Ox O2 Del Method 98.5 F 82 21 100/53 L 97 Room Air 03/04/24 04:47 03/04/24 04:47 03/04/24 04:47 03/04/24 04:47 03/04/24 04:47 03/04/24 04:47 Laboratory Results - last 24 hr 03/02/24 05:30: RPR Titer Non reactive I & O for Last 24 hours: Intake & Output 03/01/24 03/02/24 03/03/24 03/04/24 23:59 23:59 23:59 23:59 Intake Total 3500 / 3500 Balance 3500 / 3500 Weight 322 lb 15.988 oz Microbiology Reports for the Last 24 Hours: Microbiology 03/02/24 05:30 Urine,Clean Catch Urine Culture - Final Multiple organisms, suggests contamination. Narrative: General: patient is alert oriented in no acute distress and responds appropriately to questions. Appears to be in minimal pain. Sitting up in the bed and doing well HEENT: NCAT, EOMI, moist mucous membranes, neck supple with full ROM Cardiovascular: RRR +S1/S2, no murmurs or rubs Pulmonary: Clear to auscultation bilaterally, nonlabored breathing, symmetric chest rise Abdominal: Fundus below the umbilicus, firm, and tenderness appropriate for the period. Extremities: trace edema, no tenderness or cyanosis noted Skin: Normal turgor, intact, warm. Negative for erythema, pallor, petechia, or lesions. incision is well approximated and healing well. Pt has had a shower. no erythrema or drainage. no signs of infection Neurologic: Negative for sensory or motor deficit Psychiatric: Normal affect, normal thought process, good judgment and insight, no depression or anxious mood appreciated. Results Data Completed and Pending Labs on day of discharge: Labs from last 24 hours 03/02/24 05:30 RPR Titer Non reactive DS: Diagnosis Discharge Diagnosis (1) Maternal obesity affecting , antepartum: Status: Acute Code(s): O99.210 - Obesity complicating , unspecified trimester Qualifiers: Obesity type affecting : unspecified obesity Qualified Code(s): O99.210 - Obesity complicating , unspecified trimester Problem details: BMI > 50.0 (2) Gestational hypertension: Status: Acute Code(s): O13.9 - Gestational [-induced] hypertension without significant proteinuria, unspecified trimester Qualifiers: Trimester: third trimester Qualified Code(s): O13.3 - Gestational [-induced] hypertension without significant proteinuria, third trimester (3) Previous delivery affecting : Status: Acute Code(s): O34.219 - Maternal care for unspecified type scar from previous delivery (4) delivery delivered: Status: Acute Code(s): O82 - Encounter for delivery without indication Meds Home Medications and Allergies Home Medications ?Medication ?Instructions ?Recorded ?Confirmed ?Type vits no.126-ferrous fum 1 tab PO DAILY 08/06/23 03/02/24 History 28 mg iron-folic acid 800 mcg tablet (Classic ) sennosides 8.6 mg tablet (Natural 8.6 mg PO BID #60 tabs 10/20/23 03/02/24 Rx Senna Laxative) loratadine 10 mg tablet 10 mg PO DAILY 01/12/24 03/02/24 History labetalol 200 mg tablet 200 mg PO BID #60 tabs 02/16/24 03/02/24 Rx ondansetron HCl 4 mg tablet 4 mg PO Q8H 03/02/24 03/02/24 History acetaminophen 500 mg tablet 500 mg PO Q6H PRN fever or pain 03/04/24 Rx #30 tabs ferrous sulfate 325 mg (65 mg 325 mg PO DAILY #30 tabs 03/04/24 Rx iron) tablet,delayed release ibuprofen 800 mg tablet 800 mg PO Q8H PRN pain #60 tabs 03/04/24 Rx oxycodone 5 mg tablet 5 mg PO Q8H PRN pain #20 tabs 03/04/24 Rx sennosides 8.6 mg tablet (Senna 8.6 mg PO BIDP PRN Constipation 03/04/24 Rx Lax) #60 tabs simethicone 125 mg tablet 125 mg PO DAILY PRN abdominal 03/04/24 Rx distention #60 tabs New Prescriptions to Start Prescriptions: acetaminophen Joyce Irizarry ferrous sulfate Joyce Irizarry ibuprofen Joyce Irizarry oxycodone Joyce Irizarry sennosides [Senna Lax] Joyce Irizarry simethicone Joyce Irizarry Allergies Allergy/AdvReac Type Severity Reaction Status Date / Time No Known Allergies Allergy Verified 02/19/24 13:35 Discharge Plan Disposition Patient Disposition: Home, Self-Care Discharge Order Discharge Orders: Discharge Order (Routine); Ordered 03/04/24 Ordered By: Joyce Irizarry Follow up Plan Follow up with: Joyce Irizarry DO [Primary Care Provider] - Enter time for follow up Prescriptions/Medication Reconciliation: New sennosides [Senna Lax] 8.6 mg Tablet 8.6 mg PO BIDP PRN (Reason: Constipation) Qty: 60 2RF ibuprofen 800 mg tablet 800 mg PO Q8H PRN (Reason: pain) Qty: 60 2RF acetaminophen 500 mg tablet 500 mg PO Q6H PRN (Reason: fever or pain) Qty: 30 3RF simethicone 125 mg tablet 125 mg PO DAILY PRN (Reason: abdominal distention) Qty: 60 2RF ferrous sulfate 325 mg (65 mg iron) tablet,delayed release (DR/EC) 325 mg PO DAILY Qty: 30 3RF oxycodone 5 mg tablet 5 mg PO Q8H PRN (Reason: pain) Qty: 20 0RF Continued sennosides [Natural Senna Laxative] 8.6 mg tablet 8.6 mg PO BID Qty: 60 0RF loratadine 10 mg tablet 10 mg PO DAILY Patient Comments: TAKE 1 TABLET BY MOUTH ONCE DAILY Classic 28 mg iron- 800 mcg tablet 1 tab PO DAILY ondansetron HCl 4 mg tablet 4 mg PO Q8H Patient Comments: TAKE 1 TABLET BY MOUTH EVERY 8 HOURS Held labetalol 200 mg tablet 200 mg PO BID Qty: 60 2RF Hold Instructions: Resume on 03/08/24. hold if less than 130/70 Discontinued aspirin [Adult Low Dose Aspirin] 81 mg tablet,delayed release (DR/EC) 81 mg PO DAILY acetaminophen [Tylenol] 325 mg capsule 325 mg PO QIDP PRN (Reason: Mild Pain (Scale Score 1-4)) Problem Reconciliation Problems Reviewed?: Yes Patient Discharge Instructions ACTIVITY: Continue current activity DIET: regular diet Additional Instructions: Congratulations on the delivery of your sweet baby boy. It is my privilege to be your doctor and I am so thankful I could be a part of your special day. Discharge: 1. Take 800 mg Ibuprofen every 8 hours as needed for pain. You can also take 500-1000mg of Tylenol in between doses, every 6-8 hours. Use prescription pain medicine for pain you feel in between 8 hour interval. -No driving while taking narcotic pain medications. In order to drive you should be able to slam on the brakes without significant abdominal pain. 2. Wean from prescription pain medicine first. Do not drive while taking it. 3. Prescription pain medicine can make you constipated. Colace can be taken 1-2 times per day as you need. Make sure to drink at least 8 cups of water per day. 4. Iron supplements can make you constipated. Colace can be taken 1-2 times per day as you need. You can take iron tablets every other day if constipation is too bad. 5. Nothing in the vagina for 6 weeks - no intercourse, douching, tampons. No tub baths or swimming pools 6. Do not lift greater than 15 pounds for 6 weeks, this is the equivalent of 2 gallons of milk. 7. Reasons to return to L&D or call On-Call doctor - fever (greater than 100.4) - heavy vaginal bleeding (soaking through 1 pad in less than 2 hours or passing clots that are egg sized) - vaginal discharge (malodorous and/or purulent) - bleeding or discharge from her incision - severe headaches, leg tenderness/edema, or any other symptoms that warrant immediate medical attention. 8. depression/blues - Normal to feel anxious/overwhelmed for first 2 weeks - Talk to your doctor if: anxiety lasts over 2 weeks, trouble bonding with baby, withdrawing from other family members, thoughts of harming yourself or others Blood pressure and preeclampsia instructions 1. Please take your blood pressure twice daily. 2. Please call if greater than 2 values are higher than: 150 systolic (the top number) or 100 diastolic (the bottom number). 3. Please go to the emergency room or labor and delivery triage if any value is higher than: 160 systolic (the top number) or 110 diastolic (the bottom number). 4. Please call if unrelenting headache (does not go away with rest or Tylenol or ibuprofen), changes in vision (spots, floaters, flashes of light), chest pain, shortness of breath, or right upper quadrant (liver) abdominal pain. Joyce Irizarry DO [facility] [phone] *Nothing in the Vagina for 6 weeks* *No strenuous activity* *No heavy lifting* *No tub baths until okay's by MD* Patient Instructions: Depression, Hemorrhage, DI for , DI for Pre-eclampsia, [facility] Post Discharge Instructions Print Language: Lithuanian Providers Primary Care Provider: Joyce Irizarry Admit Provider: Joyce Irizarry Attending Provider: Joyce Irizarry
[2024-03-04] MEDS: LORATADINE 10MG TABLET 10 MG PO (09:01)
[2024-03-04 10:05] VITALS: BP 121/59; PULSE 86; RESP 16; TEMP 36.9; O2SAT 98
== END 2024-03-04 16:09 | disposition home or self-care (01) | DRG 788 ==
PROVIDERS: Admitting Provider Obstetrics & Gynecology; PCP Obstetrics & Gynecology; Visit Provider Obstetrics & Gynecology
PROC: 10D00Z1 Extraction of Products of Conception, Low, Open Approach (ICD-10-PCS; principal; 2024-03-02 07:30)
DX: O34.211 Maternal care for low transverse scar from previous cesarean delivery (principal); O13.4 Gestational [pregnancy-induced] hypertension without significant proteinuria, complicating childbirth; N85.8 Other specified noninflammatory disorders of uterus; Z3A.39 39 weeks gestation of pregnancy; Z37.0 Single live birth; O99.214 Obesity complicating childbirth; E66.01 Morbid (severe) obesity due to excess calories
CPT/HCPCS: 36415; 59025; 80048; 80307; 81001; 85025; 86593; 86850; 87086; 94761; 96374; C9290; G0283; J1100; J1885; J2550; J3010; J7120

== ENCOUNTER 2024-05-13 12:22 | Emergency (ER) | payer BC, SELFPAY ==
[2024-05-13 14:00] VITALS: BP 149/96; PULSE 84; RESP 17; TEMP 36.8; O2SAT 98; BMI 49.4
[2024-05-13 14:27] LABS: UTC Influenza A Antigen Negative (Negative)
[2024-05-13 14:28] LABS: UTC Influenza B Antigen Negative (Negative)
--- NOTE | 2024-05-13 14:30 | EXP.UTC ---
Discharge Plan Disposition Patient Disposition: Home, Self-Care Condition: Good Prescriptions Prescriptions: New amoxicillin 500 mg capsule 500 mg PO TID 7 Days Qty: 21 0RF fluticasone propionate [Flonase Allergy Relief] 50 mcg/actuation spray,suspension 2 spray intranasal DAILY Qty: 16 0RF Rx Instructions: administer into each nostril Referrals Follow up/Referrals: Diane Brantley PA [Primary Care Provider] - See instructions Activity Restrictions/Add. Instructions Additional Instructions/Restrictions: *Monitor Temp, Over the counter Motrin or Tylenol as directed/as needed Tylenol every 4 hours and Motrin every 6 hours (as long as your family doctor has told you that you can take it) for fever or pain. and straight to ER if unable to lower temp less than 101.0 after medication given *Warm salt water gargles may help to soothe the throat *Throat Lozenges? *Warm fluids like tea with honey may help to soothe the throat? *Sleep elevated *Humidifier/Vaporizer *Flonase 2 sprays in each nostril daily but be aware that it may take 2-3 days before you notice improvement Follow up IMMEDIATELY for new or worsening symptoms or no Noticeable improvement over the next 48-72 hours. 911 for difficulty breathing or swallowing Clinical Impressions Clinical Impression: Otitis media Instructions Patient Instructions: Middle Ear Infection Print Language Print Language: Danish Discharge ED Provider: Fide Renteria [facility] General Stated complaint: poss ear infection both ears Mode of Arrival: Ambulatory Source of Information: Patient Limitations: No Limitations Time Seen by Provider: 05/13/24 14:30 Description of Symptoms (Recalled from Triage Doc. by RN): PATIENT C/O EAR PAIN AND SINUS DRAINAGE HEENT Symptoms (Recalled from RN notes): Yes Resp Symptoms (Recalled from RN notes): No Skin Symptoms (Recalled from RN notes): No MS Symptoms (Recalled from RN notes): No Functional Status (Recalled from RN notes): WNL History of Present Illness Provider Complaint: Patient states that she has been having ear pain and pressure in both ears worse in the right States also her son just tested positive for the flu and wants to get tested Related Data Previous Rx's ?Medication ?Instructions ?Recorded amoxicillin 500 mg capsule 500 mg PO TID 7 days #21 caps 05/13/24 fluticasone propionate 50 2 spray intranasal DAILY #16 grams 05/13/24 mcg/actuation nasal spray,suspension (Flonase Allergy Relief) Allergies Allergy/AdvReac Type Severity Reaction Status Date / Time No Known Allergies Allergy Verified 04/13/24 10:33 Worker's Comp Is this a Worker's Comp case?: No [facility] Disclaimer: The information contained in this section may have been updated after the patient was seen, as this information can be updated by other users. Medical History Gestational hypertension Chronic eustachian tube dysfunction Left serous otitis media Recurrent sinusitis Acute viral syndrome Sinusitis Hyperlipidemia Surgical History H/O wisdom tooth extraction History of tonsillectomy History of section Family History Other No significant family history Social History Smoking Status: Never smoker alcohol intake: never substance use type: denies use current occupational status: employed Travel in the last 8 weeks: None Have you lived/traveled outside [place] in past 30 days?: No Contact w/someone who lives/traveled outside US past 30 days?: No Exposure to someone with infectious disease in past 14 days?: No Do you have a fever (greater than 100.4 F or 38 C)?: No Have you tested positive for COVID-19: No Exposed to someone with COVID-19 in past 14 days?: No Do you have a sore throat?: No Do you have a cough?: No Do you have any weakness?: No Do you have any diarrhea?: No Are you experiencing any unusual bleeding?: No Do you have any muscle aches/pain?: No Do you have any abdominal pain?: No Are you experiencing loss of taste or smell?: No ROS Obtained: Yes All systems reviewed & no additional complaints except as documented and Yes Systems reviewed as appropriate & no additional complaints except as documented Constitutional Constitutional: Reports system reviewed and no additional complaints, except as documented and Reports as per HPI ENT Ears, Nose, Mouth, and Throat: Reports system reviewed and no additional complaints, except as documented, Reports as per HPI, Reports otalgia, Reports nasal congestion and Reports nasal discharge Cardiovascular Cardiovascular: Reports system reviewed and no additional complaints, except as documented and Reports as per HPI Respiratory Respiratory: Reports system reviewed and no additional complaints, except as documented and Reports as per HPI Gastrointestinal Gastrointestingal: Reports system reviewed and no additional complaints, except as documented and as per HPI Genitourinary Female Genitourinary: Reports system reviewed and no additional complaints, except as documented and Reports as per HPI Physical Exam General General appearance: alert and in no apparent distress ENT ENT exam: Present mucous membranes moist Expanded ENT Exam TM/Canal exam: Right TM: erythema and Bilateral TM: bulging Respiratory Respiratory exam: Present normal lung sounds bilaterally; Absent respiratory distress or wheezes Cardiovascular Cardiovascular exam: Present regular rate, normal rhythm and normal heart sounds Neurological Exam Neurological exam: Present alert, oriented X3 and normal gait Medical Decision Making Medical Records Screening: Per USPSTF and CDC recommendations, given the prevalence of disease in our region, it is our hospital?s policy to screen for HIV and viral Hepatitis for all patients aged 18 and over and those with ongoing risk factors. Elias Inquiry Pt receiving controlled substance: No Elias was queried for this patient: No Vital Signs: 05/13/24 14:00 Temperature 98.3 F Temperature Source Oral Pulse Rate [Right Brachial] 84 Respiratory Rate 17 Blood Pressure [Right Arm] 149/96 H Blood Pressure Mean [Right Arm] 113 Blood Pressure Source [Right Arm] Automatic Cuff Blood Pressure Position [Right Arm] Sitting 02 Sat by Pulse Oximetry 98 Oxygen Delivery Method Room Air Lab Data Lab results reviewed: Yes I reviewed the patient's lab results. Lab Results 05/13/24 14:10: Influenza Type A Ag Negative, Influenza Type B Ag Negative
[2024-05-13 14:36] VITALS: BP 149/96; PULSE 84; RESP 17; TEMP 36.8; O2SAT 98
== END 2024-05-13 14:56 | disposition home or self-care (01) ==
PROVIDERS: Emergency Provider Nurse Practitioner; PCP Student in an Organized Health Care Education/Training Program
DX: H66.93 Otitis media, unspecified, bilateral (principal)
CPT/HCPCS: 87804; 99213; G0381

== ENCOUNTER 2024-07-26 11:15 | Outpatient (CLI) | payer BC, SELFPAY | END 2024-07-26 23:59 | disposition home or self-care (01) | LOC: LAB.DROPOF 07-27 12:51 | PROVIDERS: PCP Student in an Organized Health Care Education/Training Program; Visit Provider Student in an Organized Health Care Education/Training Program | DX: R35.0 Frequency of micturition (principal) | CPT/HCPCS: 87086 ==

== ENCOUNTER 2025-01-11 13:24 | Outpatient (CLI) | payer BC, SELFPAY ==
--- OUTSIDE RECORDS SUMMARY | 2025-01-11 13:29 | XMS_ITS | Clinical Summary ---
Author Organization [facility] Address [address] [place] [address] Care Team Providers Care Police Dispatcher Name Role Phone Jose Roberto Castillo MD Primary Care Provider Allergies Active Allergy Reactions Criticality Noted Date Comments Codeine Other (See Comments) Low 10/08/2012 Hyperactive Medications albuterol sulfate HFA 108 (90 Base) MCG/ACT inhaler INHALE 1 PUFF BY MOUTH 4 TIMES DAILY Active fluticasone (FLONASE) 50 MCG/ACT nasal spray 2 sprays Daily. Active levocetirizine (XYZAL) 5 MG tablet Take 1 tablet by mouth Daily. Active ondansetron (ZOFRAN) 4 MG tablet Take 1 tablet by mouth 3 times a day. 11/05/2023 Active Tara-greg 8.6 MG tablet Take 1 tablet by mouth Every 12 (Twelve) Hours. 10/28/2023 Active vitamin (, CLASSIC, vitamin) tablet Take 1 tablet by mouth Daily. Active BABY ASPIRIN PO Take 1 tablet by mouth Daily. Active Loratadine 10 MG capsule Take 1 capsule by mouth Daily. Active Active Problems Problem Noted Date Diagnosed Date 01/13/2024 Previous delivery affecting 0 01/13/2024 Morbid obesity with BMI of 50.0-59.9, adult 12/17 Family History Medical History Relation Name Comments Uterine cancer Maternal Grandfather Ovarian cancer Other Family History Pancreatic cancer Other Family History Malignan t Uterine cancer Other Family History Malignant Relation Name Status Comments Maternal Grandfather Other Family History Social History Tobacco Use Types Packs/Day Years Used Date Smoking Tobacco: Never Smokeless Tobacco: Never Tobacco Cessation:Counseling Given: Not Answered Alcohol Use Standard Drinks/Week Comments Never 0 (1 standard drink = 0.6 oz pur e alcohol) AUDIT-C Answer Date Recorded Q1: How often do you have a drink containing alc ohol? Never 02/06/2020 Average Number of Drinks Not on file 020 Frequency of Binge Drinking Not on file 01/17 Comments No Sex and Gender Information Value Date Recorded Sex Assigned at Not on file Legal Sex Female 8:04 AM EDT Gender Identity Not on file Sexual Orientation Not on file Occupation Industry Job Start Date Job End Date Student Not on file Not on file Not on file Last Filed Vital Signs Vital Sign Reading Time Taken Comments Blood Pressure 128/67 01/13/2024 12:48 PM EDT Pulse - - Temperature - - Respiratory Rate - - Oxygen Saturation - - Inhaled Oxygen Concentration - - Weight 144 kg (317 lb) 01/13/2024 12:48 PM EDT Height 165.1 cm (5' 5 ) 02/13/2020 11:51 AM EDT Body Mass Index 52.75 02/13/2020 11:51 AM EDT Plan of Treatment Health Maintenance Due Date Last Done Comments Annual Gynecologic Pelvic an d Breast Exam 2000 HPV VACCINES (1 - 3-dose series) 2015 ANNUAL PHYSICAL 02/06/2020 HEPATITIS C SCREENING 02/06/2020 PAP SMEAR 2021 COVID-19 Vaccine (3 - 2023-2 5 season) 2024 03/11/2021, 02/14/2021 INFLUENZA VACCINE 02/15/2025 04/06/2020, 02/24/2018 TDAP/TD VACCINES (3 - Td or Tdap) 12/28/2033 12/29/2023, 04/09/2021 MENINGOCOCCAL B VACCINE Aged Out No l onger eligible based on patient's age to complete this topic Pneumococcal Vaccine 0-49 Aged Out No longer eligible based on patient's age to complete this topic Insurance [facility] PPO Care Teams Police Dispatcher Relationship Specialty Start Date End Date Jose Roberto Castillo [facility] [address] [facility] [address] [facility] [place] [address] PCP - General Emergency Medicine 02/13/20
--- NOTE | 2025-01-11 13:30 | CT_ITS ---
FINAL REPORT TECHNIQUE: Thin section axial images were obtained through the paranasal sinuses without contrast. Reconstruction images were obtained from the axial data. Exam was performed using dose reduction techniques such as automated exposure control, adjustment of the mA and kV according to patient size, and use of iterative reconstruction technique. CLINICAL HISTORY: congestion COMPARISON: None FINDINGS: The paranasal sinuses are clear. A Jarad air cell is present on the left. There is no air-fluid level or significant mucosal thickening. The maxillary infundibulum are patent bilaterally. There is no significant nasal septal deviation. There is no acute osseous abnormality. There are multiple bilateral submandibular and upper cervical lymph nodes present, with increase in number more than increase in size, etiology unclear. IMPRESSION: No evidence of acute sinusitis. Bilateral lymphadenopathy, nonspecific, likely reactive given the patient's age. Reviewed, Interpreted and Dictated by Rebecca Choe MD Transcribed by Jasmine Cheema Authenticated and [facility]
== END 2025-01-11 23:59 | disposition home or self-care (01) ==
LOC: RAD 13:26
PROVIDERS: Visit Provider Nurse Practitioner
DX: R59.1 Generalized enlarged lymph nodes (principal)
CPT/HCPCS: 70486

== ENCOUNTER 2025-02-08 14:39 | Outpatient (CLI) | payer BC, SELFPAY ==
--- OUTSIDE RECORDS SUMMARY | 2025-02-08 14:42 | XMS_ITS | Clinical Summary ---
Author Organization [facility] Address [address] [place] [address] Care Team Providers Care Neon Molder Name Role Phone Jose Roberto Castillo MD [...] ANNUAL PHYSICAL 02/06/2020 HEPATITIS C SCREENING 02/06/2020 INFLUENZA VACCINE 12/16/2024 04/06/2020, 02/24/2018 TDAP/TD VACCINES (3 - Td or Tdap) 12/28/2033 12/29/2023, 04/09/2021 MENINGOCOCCAL B VACCINE Aged Out No l onger eligible based on patient's age to complete this topic Pneumococcal Vaccine 0-49 Aged Out No longer eligible based on patient's age to complete this topic Insurance [facility] Care Teams Neon Molder Relationship Specialty Start Date End Date Jose Roberto Castillo MD [address] ATTN: [place] [address] PCP - General Emergency Medicine 02/13/20
== END 2025-02-08 23:59 | disposition home or self-care (01) ==
LOC: LAB 14:40
PROVIDERS: Visit Provider Otolaryngology
DX: J32.9 Chronic sinusitis, unspecified (principal)
CPT/HCPCS: 36415; 82785; 86003